=== PATIENT | male | born 1985 | race Caucasian/White ===

== ENCOUNTER 2021-08-02 11:45 | Inpatient (IN) | payer OTHER, SELFPAY ==
--- NOTE | 2021-08-02 | ECG_ITS ---
Test Reason : MED CLEARANCE Blood Pressure : / mmHG Vent. Rate : 070 BPM Atrial Rate : 070 BPM P-R Int : 134 ms QRS Dur : 088 ms QT Int : 354 ms P-R-T Axes : 029 067 040 degrees QTc Int : 382 ms Normal sinus rhythm with sinus arrhythmia Normal ECG No previous ECGs available Referred By: Beth Molina Electronically Signed By:CASPER SALAS MD
[2021-08-02 11:50] VITALS: BP 134/80; BP 144/94; PULSE 101; PULSE 80; RESP 20; TEMP 37.7; O2SAT 95; O2SAT 97; BMI 22.7
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
[2021-08-02 12:38] LABS: COVID-19 Test Negative (Negative); IDNOW Serial# 16C4AD1C
[2021-08-02 13:09] LABS: MANUAL DIFF FLAG NO
[2021-08-02 13:11] LABS: Basophils Absolute Auto 0.1 X10*3/uL (0.0-0.2); Basophils Percent Auto 0.9 % (0-2); Eosinophils Absolute Auto 0.2 X10*3/uL (0.0-0.4); Eosinophils Percent Auto 1.9 % (0-4); Hemoglobin 15.8 g/dl (14.0-18.0); Imm Gran Abs Auto 0.05 X10*3/uL (0.00-0.03); Imm Gran Pct Auto 0.6 % (0.0-0.4); Lymphocytes Absolute Auto 1.1 X10*3/uL (1.2-4.9); Lymphocytes Percent Auto 12.1 % (20-40); Mean Corpuscular HGB Conc 34.3 g/dl (31.0-36.0); Mean Corpuscular Hemoglobin 29.7 pg (27.0-33.0); Mean Corpuscular Volume 86.5 fL (80.0-98.0); Mean Platelet Volume 9.1 fL (9.4-12.4); Monocytes Absolute Auto 0.6 X10*3/uL (0.1-1.2); Monocytes Percent Auto 6.9 % (2-11); Neutrophils Percent Auto 77.6 % (45-73); Platelet Count 215 X10*3/uL (160-400); Red Blood Count 5.32 X10*6/uL (4.60-5.80); Red Cell Distribution Width 12.2 % (11.0-16.0)
[2021-08-02 13:16] VITALS: PULSE 89; TEMP 37.1
[2021-08-02 13:26] LABS: Ethanol < 10 mg/dL
[2021-08-02 13:32] LABS: Influenza A Negative (Negative); Influenza B2 Negative (Negative)
[2021-08-02 13:48] LABS: Amphetamine Screen Urine Not Detected (Not Detect); Barbiturates, Urine Not Detected (Not Detect); Benzodiazepines Screen Urine Not Detected (Not Detect); Cannabinoid Screen Urine Not Detected (Not Detect); Cocaine Screen Urine Not Detected (Not Detect); Fentanyl, urine Not Detected (Not Detect); Opiate Screen Urine Not Detected (Not Detect); Phencyclidine Screen Urine Not Detected (Not Detect)
[2021-08-02 14:29] LABS: Alanine Aminotransferase 29 U/L (0-40); Albumin Level 4.9 g/dL (3.5-5.0); Alkaline Phosphatase 64 U/L (39-117); Anion Gap 13 (12-20); Aspartate Amino Transferase 19 U/L (5-37); Bilirubin Direct 0.3 mg/dL (0.0-0.5); Bilirubin Total 0.7 mg/dL (0.0-1.0); Blood Urea Nitrogen 12 mg/dL (9-16); Calcium 10.6 mg/dL (8.4-10.2); Carbon Dioxide 26 mmol/L (22-29); Chloride 104 mmol/L (96-108); Creatinine Clr Calc Pharmacy 80.7; Estimated Glomerular Filt Rate > 60; Glucose Random 99 mg/dL (60-115); Potassium 4.4 mmol/L (3.3-5.1); Sodium 139 mmol/L (135-145); Total Protein 8.1 g/dL (6.5-8.0)
[2021-08-02] MEDS: QUEtiapine Fumarate 100 MG TABLET PO (17:06)
--- NOTE | 2021-08-02 17:48 | PHA.MEDREC ---
MED REC COMPLETE, SOME TIMES WERE CHANGED BASED ON PATIENT PREFERENCE FOR WHEN HE TAKES THEM. HE HAD STRONG OPINIONS ON WHAT DOSES HE TAKES AT WHAT TIME Pharmacy Consult ? Medication Reconciliation Pharmacy has completed the medication reconciliation.
[2021-08-02 20:05] VITALS: BP 117/64; PULSE 120; RESP 20; TEMP 36.4; O2SAT 95
[2021-08-02] MEDS: QUEtiapine Fumarate 300 MG TABLET PO (20:43)
[2021-08-02] MEDS: DULoxetine HCl 30 MG CAPSULE.DR PO (20:43)
[2021-08-02] MEDS: Melatonin 3 MG TABLET PO (20:43)
[2021-08-02] MEDS: OXcarbazepine 300 MG TABLET 600 MG PO (20:43)
[2021-08-02 21:07] VITALS: PULSE 86; RESP 20
[2021-08-02 22:23] VITALS: BP 119/68; PULSE 89; RESP 16; TEMP 36.4; O2SAT 96; BMI 24.9
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
[2021-08-03 06:00] VITALS: BP 121/74; PULSE 94; RESP 18; TEMP 36.6; O2SAT 97
[2021-08-03] MEDS: QUEtiapine Fumarate 100 MG TABLET PO ×3 (09:10→17:05)
[2021-08-03] MEDS: buPROPion HCl XL 150 MG TAB.ER.24H PO (09:10)
[2021-08-03] MEDS: DULoxetine HCl 60 MG CAPSULE.DR PO (09:10)
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
[2021-08-03 17:28] VITALS: BP 112/54; PULSE 81; RESP 20; TEMP 36.6; O2SAT 97
[2021-08-03] MEDS: QUEtiapine Fumarate 300 MG TABLET PO (20:20)
[2021-08-03] MEDS: Melatonin 3 MG TABLET PO (20:20)
[2021-08-03] MEDS: DULoxetine HCl 30 MG CAPSULE.DR PO (20:20)
[2021-08-03] MEDS: OXcarbazepine 300 MG TABLET 600 MG PO (20:21)
[2021-08-04 06:00] VITALS: BP 126/78; PULSE 90; RESP 18; TEMP 36.6; O2SAT 97
[2021-08-04] MEDS: QUEtiapine Fumarate 100 MG TABLET PO ×3 (09:30→16:40)
[2021-08-04] MEDS: DULoxetine HCl 60 MG CAPSULE.DR PO (09:30)
--- NOTE | 2021-08-04 09:33 | HO.PSYCHPN ---
Subjective Subjective Date of Service: 08/04/21 Reason For Visit: SI, s/p overdose Subjective Notes: 3 Day Healthcare Proxy: No Guardianship: No Medical Problems Affecting Mental Status: No Interim History: Patient was seen and discussed in rounds today. Records and plans were reviewed. He has been engaged but continues to feel depressed. He is more interactive and less isolative. Eating and sleeping adequately. He denies any side effects. He continues to have some suicidal ideations but no plans or intent and states to be safe on the unit. No changes were made today Medication Compliance: Yes Side effects from medications: No Review of Systems Review of Systems Depression/SI Yes all other systems are reviewed and are negative Mental Status Exam Mental Status Exam Narrative: He is alert, oriented and pleasant. Normal speech. Good eye contact. Affect is appropriate and varied. No signs of psychosis. He denies any active suicidal or homicidal ideations. Cognitively is intact. Judgment is intact Diagnostics Vital Signs (24Hr): Vital Signs - 24 hr 08/03/21 17:28 08/04/21 06:00 Temperature 98 F 97.8 F Pulse Rate 81 90 Respiratory Rate 20 18 Blood Pressure 112/54 L 126/78 Pulse Oximetry 97 97 BMI result Body Mass Index 24.9 Labs Results: 08/02/21 13:03 08/02/21 13:03 Labs: Laboratory Results - last 48 hr 08/02/21 08/02/21 08/02/21 12:02 13:03 13:03 WBC 9.0 RBC 5.32 Hgb 15.8 Hct 46.0 MCV 86.5 MCH 29.7 MCHC 34.3 RDW 12.2 Plt Count 215 MPV 9.1 L Immature Gran % (Auto) 0.6 H Neut % (Auto) 77.6 H Lymph % (Auto) 12.1 L Rice % (Auto) 6.9 Eos % (Auto) 1.9 Baso % (Auto) 0.9 Lymph # (Auto) 1.1 L Rice # (Auto) 0.6 Eos # (Auto) 0.2 Baso # (Auto) 0.1 Abs Immat Gran (auto) 0.05 H Absolute Neuts (auto) 7.0 Absolute Nucleated RBC 0.000 Nucleated RBC % (auto) 0.0 Sodium 139 Potassium 4.4 Chloride 104 Carbon Dioxide 26 Anion Gap 13 BUN 12 Creatinine 1.21 Estim Creat Clear Calc 80.7 Estimated GFR > 60 Random Glucose 99 Calcium 10.6 H Total Bilirubin 0.7 Direct Bilirubin 0.3 AST 19 ALT 29 Alkaline Phosphatase 64 Total Protein 8.1 H Albumin 4.9 Urine Opiates Screen Urine Fentanyl Screen Ur Barbiturates Screen Ur Phencyclidine Scrn Ur Amphetamines Screen U Benzodiazepines Scrn Urine Cocaine Screen U Marijuana (THC) Screen Ethyl Alcohol COVID-19 (CASTRO) Negative COVID-19 Clin Com See Note Influenza Type A (POLO) Influenza Type B (POLO) Influenza A & B Note 08/02/21 08/02/21 08/02/21 13:03 13:03 13:25 WBC RBC Hgb Hct MCV MCH MCHC RDW Plt Count MPV Immature Gran % (Auto) Neut % (Auto) Lymph % (Auto) Rice % (Auto) Eos % (Auto) Baso % (Auto) Lymph # (Auto) Rice # (Auto) Eos # (Auto) Baso # (Auto) Abs Immat Gran (auto) Absolute Neuts (auto) Absolute Nucleated RBC Nucleated RBC % (auto) Sodium Potassium Chloride Carbon Dioxide Anion Gap BUN Creatinine Estim Creat Clear Calc Estimated GFR Random Glucose Calcium Total Bilirubin Direct Bilirubin AST ALT Alkaline Phosphatase Total Protein Albumin Urine Opiates Screen Not Detected Urine Fentanyl Screen Not Detected Ur Barbiturates Screen Not Detected Ur Phencyclidine Scrn Not Detected Ur Amphetamines Screen Not Detected U Benzodiazepines Scrn Not Detected Urine Cocaine Screen Not Detected U Marijuana (THC) Screen Not Detected Ethyl Alcohol < 10 COVID-19 (CASTRO) COVID-19 Clin Com Influenza Type A (POLO) Negative Influenza Type B (POLO) Negative Influenza A & B Note See Note Medications Medications Current Medications Acetaminophen (Acetaminophen 325 Mg Tablet) 650 mg PO Q6H PRN PRN Reason: Headache/Pain Mild Scale (1-3) Al Hydroxide/Mg Hydroxide (Magnesium Hydrox/Alum Hydrox 30 Ml Oral.Susp) 30 ml PO Q6H PRN PRN Reason: Heartburn/Nausea Bupropion HCl (Bupropion Hcl Xl 150 Mg Tab.Er.24h) 150 mg PO DAILY FEL[facility] Last Admin: 08/03/21 09:10 Dose: 150 mg Documented by: Clonazepam (Clonazepam 0.5 Mg Tablet) 0.5 mg PO DAILY PRN PRN Reason: anxiety Clonidine HCl (Clonidine Hcl 0.1 Mg Tablet) 0.1 mg PO BID PRN; Protocol PRN Reason: Anxiety Duloxetine HCl (Duloxetine Hcl 30 Mg Capsule.Dr) 30 mg PO BEDTIME [facility] Last Admin: 08/03/21 20:20 Dose: 30 mg Documented by: Duloxetine HCl (Duloxetine Hcl 60 Mg Capsule.Dr) 60 mg PO DAILY [facility] Last Admin: 08/03/21 09:10 Dose: 60 mg Documented by: Hydroxyzine HCl (Hydroxyzine Hcl 50 Mg Tablet) 50 mg PO TID PRN PRN Reason: anxiety Hydroxyzine HCl (Hydroxyzine Hcl 25 Mg Tablet) 25 mg PO BEDTIME PRN PRN Reason: Anxiety Magnesium Hydroxide (Milk Of Magnesia 30 Ml Oral.Susp) 30 ml PO DAILY PRN PRN Reason: Constipation Melatonin (Melatonin 3 Mg Tablet) 3 mg PO BEDTIME [facility] Last Admin: 08/03/21 20:20 Dose: 3 mg Documented by: Nicotine (Nicotine 7 Mg Patch.Td24) 7 mg TRANSDERMA Q24H [facility] Last Admin: 08/03/21 21:26 Dose: Not Given Documented by: Ondansetron HCl (Ondansetron Odt 4 Mg Tab.Rapdis) 4 mg TRANSLINGU Q8H PRN PRN Reason: nausea Oxcarbazepine (Oxcarbazepine 300 Mg Tablet) 600 mg PO BEDTIME [facility] Last Admin: 08/03/21 20:21 Dose: 600 mg Documented by: Quetiapine Fumarate (Quetiapine Fumarate 100 Mg Tablet) 100 mg PO TID@0800,1200,1700 [facility] Last Admin: 08/03/21 17:05 Dose: 100 mg Documented by: Quetiapine Fumarate (Quetiapine Fumarate 300 Mg Tablet) 300 mg PO BEDTIME [facility] Last Admin: 08/03/21 20:20 Dose: 300 mg Documented by: Trazodone HCl (Trazodone Hcl 50 Mg Tablet) 50 mg PO BEDTIME PRN PRN Reason: Insomnia Allergies Allergies Allergy/AdvReac Type Severity Reaction Status Date / Time benztropine [From Cogentin] Allergy Rash Verified 08/02/21 11:57 ibuprofen [From Motrin] Allergy Rash Verified 08/02/21 11:57 Assessment & Plan Assessment & Plan (1) Suicidal ideation: Status: Acute Code(s): R45.851 - Suicidal ideations (2) Substance abuse: Status: Acute Code(s): F19.10 - Other psychoactive substance abuse, uncomplicated Plan Current medications were continued with no changes. He was informed that even though the Klonopin was put as an order he may not be discharged on it 08/04/2021: Continue current regimen and plans I spent minutes with the patient and/or on the patient floor today, greater than?50% of which was spent counseling/coordinating care. Reason for contiued inpatient stay Substantial Risk for: harm to self
[2021-08-04] MEDS: Acetaminophen 325 MG TABLET 650 MG PO ×2 (09:34→15:45)
[2021-08-04] MEDS: buPROPion HCl XL 150 MG TAB.ER.24H PO (09:35)
[2021-08-04] MEDS: Nicotine 7 MG PATCH.TD24 TRANSDERMA (09:35)
[2021-08-04] MEDS: hydrOXYzine HCL 50 MG TABLET PO (15:44)
[2021-08-04] MEDS: Nicotine Polacrilex 2 MG GUM BUCCAL ×2 (16:40→19:08)
[2021-08-04] MEDS: Milk of Magnesia 30 ML ORAL.SUSP PO (16:42)
[2021-08-04 18:00] VITALS: BP 111/76; PULSE 107; RESP 16; TEMP 36.3; O2SAT 98
[2021-08-04] MEDS: QUEtiapine Fumarate 300 MG TABLET PO (22:09)
[2021-08-04] MEDS: DULoxetine HCl 30 MG CAPSULE.DR PO (22:10)
[2021-08-04] MEDS: OXcarbazepine 300 MG TABLET 600 MG PO (22:10)
[2021-08-04] MEDS: Melatonin 3 MG TABLET PO (22:10)
[2021-08-05 06:00] VITALS: BP 139/74; PULSE 99; TEMP 36.7; O2SAT 98
[2021-08-05] MEDS: buPROPion HCl XL 150 MG TAB.ER.24H PO (08:51)
[2021-08-05] MEDS: DULoxetine HCl 60 MG CAPSULE.DR PO (08:51)
[2021-08-05] MEDS: QUEtiapine Fumarate 100 MG TABLET PO ×3 (08:51→17:02)
[2021-08-05] MEDS: Nicotine 7 MG PATCH.TD24 TRANSDERMA (09:24)
[2021-08-05] MEDS: Acetaminophen 325 MG TABLET 650 MG PO ×2 (09:24→14:48)
[2021-08-05] MEDS: Nicotine Polacrilex 2 MG GUM BUCCAL ×6 (09:24→21:11)
[2021-08-05] MEDS: Magnesium Hydrox/Alum Hydrox 30 ML ORAL.SUSP PO ×2 (14:48→19:36)
--- NOTE | 2021-08-05 16:14 | P.PNPSI_ITS ---
Subjective Subjective Date of Service: 08/05/21 Reason For Visit: SI, s/p overdose Interim History: Patient reports that his mood is a little better though he still depressed and anxious, when mostly anxious. He also says that suicidality remains though he is trying to push it off. Patient shared that for the past nearly 2 years he has remained sober however For about the past 3 months, due to serious psychosocial stressors which include Dissolution of his marriage, losing his car a becoming homeless, He has struggled with depression and relapse. Patient says that At his most recent admission at [facility], he was restarted on his medications and started feeling better which extended into respite. However soon as he discharged from respite he quickly relapsed, got depressed, guilty and suicidal. Patient asks if his Wellbutrin can be increased, hoping this will help his mood and stability. He says he is not sure how to maintain sobriety and stability since it has been such a krishna few months. However he wants to be sober and wants to get back to his job. [employer] Discussed psychiatric history in detail and patient denies any history of manic type episodes or behaviors. He says this was also discussed with his outpatient therapist who said he seems more likely to have borderline personality disorder. Denies trauma hx. 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 There is no evidence of perceptual disturbance. Patients insight and judgment are impaired Diagnostics Vital Signs (24Hr): Vital Signs - 24 hr 08/04/21 18:00 08/05/21 06:00 Temperature 97.3 F 98.0 F Pulse Rate 107 H 99 Respiratory Rate 16 Blood Pressure 111/76 139/74 Pulse Oximetry 98 98 BMI result Body Mass Index 24.9 Labs Results: 08/02/21 13:03 08/02/21 13:03 Medications Medications Current Medications Acetaminophen (Acetaminophen 325 Mg Tablet) 650 mg PO Q6H PRN PRN Reason: Headache/Pain Mild Scale (1-3) Last Admin: 08/05/21 14:48 Dose: 650 mg Documented by: Al Hydroxide/Mg Hydroxide (Magnesium Hydrox/Alum Hydrox 30 Ml Oral.Susp) 30 ml PO Q6H PRN PRN Reason: Heartburn/Nausea Last Admin: 08/05/21 14:48 Dose: 30 ml Documented by: Bupropion HCl (Bupropion Hcl Xl 300 Mg Tab.Er.24h) 300 mg PO DAILY FELISHA Clonazepam (Clonazepam 0.5 Mg Tablet) 0.5 mg PO DAILY PRN PRN Reason: anxiety Clonidine HCl (Clonidine Hcl 0.1 Mg Tablet) 0.1 mg PO BID PRN; Protocol PRN Reason: Anxiety Duloxetine HCl (Duloxetine Hcl 30 Mg Capsule.Dr) 30 mg PO BEDTIME [facility] Last Admin: 08/04/21 22:10 Dose: 30 mg Documented by: Duloxetine HCl (Duloxetine Hcl 60 Mg Capsule.Dr) 60 mg PO DAILY [facility] Last Admin: 08/05/21 08:51 Dose: 60 mg Documented by: Hydroxyzine HCl (Hydroxyzine Hcl 50 Mg Tablet) 50 mg PO TID PRN PRN Reason: anxiety Last Admin: 08/04/21 15:44 Dose: 50 mg Documented by: Hydroxyzine HCl (Hydroxyzine Hcl 25 Mg Tablet) 25 mg PO BEDTIME PRN PRN Reason: Anxiety Magnesium Hydroxide (Milk Of Magnesia 30 Ml Oral.Susp) 30 ml PO DAILY PRN PRN Reason: Constipation Last Admin: 08/04/21 16:42 Dose: 30 ml Documented by: Melatonin (Melatonin 3 Mg Tablet) 3 mg PO BEDTIME [facility] Last Admin: 08/04/21 22:10 Dose: 3 mg Documented by: Nicotine (Nicotine 7 Mg Patch.Td24) 7 mg TRANSDERMA Q24H [facility] Last Admin: 08/05/21 09:24 Dose: 7 mg Documented by: Nicotine Polacrilex (Nicotine Polacrilex 2 Mg Gum) 2 mg BUCCAL Q2H PRN PRN Reason: Nicotine Cravings Last Admin: 08/05/21 14:48 Dose: 2 mg Documented by: Ondansetron HCl (Ondansetron Odt 4 Mg Tab.Rapdis) 4 mg TRANSLINGU Q8H PRN PRN Reason: nausea Oxcarbazepine (Oxcarbazepine 300 Mg Tablet) 600 mg PO BEDTIME [facility] Last Admin: 08/04/21 22:10 Dose: 600 mg Documented by: Quetiapine Fumarate (Quetiapine Fumarate 100 Mg Tablet) 100 mg PO TID@0800,1200,1700 [facility] Last Admin: 08/05/21 11:30 Dose: 100 mg Documented by: Quetiapine Fumarate (Quetiapine Fumarate 300 Mg Tablet) 300 mg PO BEDTIME [facility] Last Admin: 08/04/21 22:09 Dose: 300 mg Documented by: Trazodone HCl (Trazodone Hcl 50 Mg Tablet) 50 mg PO BEDTIME PRN PRN Reason: Insomnia Allergies Allergies Allergy/AdvReac Type Severity Reaction Status Date / Time benztropine [From Cogentin] Allergy Rash Verified 08/02/21 11:57 ibuprofen [From Motrin] Allergy Rash Verified 08/02/21 11:57 Assessment & Plan Assessment & Plan (1) Suicidal ideation: Status: Acute Code(s): R45.851 - Suicidal ideations (2) Substance abuse: Status: Acute Code(s): F19.10 - Other psychoactive substance abuse, uncomplicated Plan Patient is 35-year-old male with history of mood lability, substance abuse, depression, several suicide attempts who presents following overdose on Seroquel in the face of discharging from [facility] and psychosocial stresses from dissolution of marriage, homelessness and losing his car. This is 3rd psychiatric hospitalization in about 1.5 months. Patient restarted on his medications 08/05 Remains depressed and anxious with passive SI that he worries will turn into active. Requests that agrees to increase of Wellbutrin to help treat depression/anxiety PLAN: CV q15 INCREASE Wellbutrin XL to 300 mg daily Clonazepam (Clonazepam 0.5 Mg Tablet) 0.5 mg PO DAILY PRN anxiety Clonidine HCl 0.1 mg PO BID PRN;Anxiety Duloxetine HCl 30 mg PO BEDTIME [facility]EL[facility] Duloxetine HCl 60 mg PO DAILY [facility] Hydroxyzine HCl (Hydroxyzine Hcl 50 Mg Tablet) 50 mg PO TID PRN anxiety Melatonin (Melatonin 3 Mg Tablet) 3 mg PO BEDTIME FEL[facility] [id number] mg PO BEDTIME [facility] Quetiapine Fumarate 100 mg PO TID@0800,1200,1700 [facility] Quetiapine Fumarate 300 mg PO BEDTIME [facility] Trazodone HCl 50 mg PO BEDTIME PRN I spent minutes with the patient and/or on the patient floor today, greater than?50% of which was spent counseling/coordinating care. Patient educated on: diagnosis, medication risk/benefits, substance abuse and therapeutic strategies Informed Consent: understands Reason for contiued inpatient stay Substantial Risk for: rapid decompensation
[2021-08-05 18:00] VITALS: BP 137/69; PULSE 109; RESP 18; TEMP 37.2
[2021-08-05] MEDS: clonazePAM 0.5 MG TABLET PO (20:23)
[2021-08-05] MEDS: OXcarbazepine 300 MG TABLET 600 MG PO (22:11)
[2021-08-05] MEDS: DULoxetine HCl 30 MG CAPSULE.DR PO (22:11)
[2021-08-05] MEDS: Melatonin 3 MG TABLET PO (22:11)
[2021-08-05] MEDS: QUEtiapine Fumarate 300 MG TABLET PO (22:12)
[2021-08-06 06:00] VITALS: BP 134/72; PULSE 102; TEMP 36.8; O2SAT 97
[2021-08-06] MEDS: QUEtiapine Fumarate 100 MG TABLET PO ×3 (08:40→16:26)
[2021-08-06] MEDS: buPROPion HCl XL 300 MG TAB.ER.24H PO (08:40)
[2021-08-06] MEDS: DULoxetine HCl 60 MG CAPSULE.DR PO (08:40)
[2021-08-06] MEDS: Nicotine 7 MG PATCH.TD24 TRANSDERMA (08:51)
[2021-08-06] MEDS: Nicotine Polacrilex 2 MG GUM BUCCAL ×4 (10:53→18:46)
[2021-08-06] MEDS: Acetaminophen 325 MG TABLET 650 MG PO ×2 (10:54→21:15)
--- NOTE | 2021-08-06 15:35 | HO.PSYCHPN ---
Subjective Subjective Date of Service: 08/06/21 Reason For Visit: SI, s/p overdose Interim History: Patient reports that he is doing not too bad. No suicidal thinking. Discussed patient's struggles with substance abuse and how when sober he did not think he needed extra-support to remain so. Patient acknowledges that to remain sober he will do best to engage in outpatient treatment such as NA or getting a literacy coach, which he wants. Patient feels that medications are probably on target and that he does not need medication changes at this time. He was unaware other clonidine was available as a p.r.n. which he says has helped in the past for anxiety. Discussed some of patient's borderline traits and he is open to working on work sheets while on the unit. 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 There is no evidence of perceptual disturbance.? Patients insight and judgment are intact. Diagnostics Vital Signs (24Hr): Vital Signs - 24 hr 08/05/21 18:00 08/06/21 06:00 Temperature 99.0 F 98.2 F Pulse Rate 109 H 102 H Respiratory Rate 18 Blood Pressure 137/69 134/72 Pulse Oximetry 97 BMI result Body Mass Index 24.9 Labs Results: 08/02/21 13:03 08/02/21 13:03 Medications Medications Current Medications Acetaminophen (Acetaminophen 325 Mg Tablet) 650 mg PO Q6H PRN PRN Reason: Headache/Pain Mild Scale (1-3) Last Admin: 08/06/21 10:54 Dose: 650 mg Documented by: Al Hydroxide/Mg Hydroxide (Magnesium Hydrox/Alum Hydrox 30 Ml Oral.Susp) 30 ml PO Q6H PRN PRN Reason: Heartburn/Nausea Last Admin: 08/05/21 19:36 Dose: 30 ml Documented by: Bupropion HCl (Bupropion Hcl Xl 300 Mg Tab.Er.24h) 300 mg PO DAILY [facility] Last Admin: 08/06/21 08:40 Dose: 300 mg Documented by: Clonazepam (Clonazepam 0.5 Mg Tablet) 0.5 mg PO DAILY PRN PRN Reason: anxiety Last Admin: 08/05/21 20:23 Dose: 0.5 mg Documented by: Clonidine HCl (Clonidine Hcl 0.1 Mg Tablet) 0.1 mg PO Q4H PRN; Protocol PRN Reason: Anxiety Duloxetine HCl (Duloxetine Hcl 30 Mg Capsule.Dr) 30 mg PO BEDTIME [facility] Last Admin: 08/05/21 22:11 Dose: 30 mg Documented by: Duloxetine HCl (Duloxetine Hcl 60 Mg Capsule.Dr) 60 mg PO DAILY [facility] Last Admin: 08/06/21 08:40 Dose: 60 mg Documented by: Hydroxyzine HCl (Hydroxyzine Hcl 50 Mg Tablet) 50 mg PO TID PRN PRN Reason: anxiety Last Admin: 08/04/21 15:44 Dose: 50 mg Documented by: Magnesium Hydroxide (Milk Of Magnesia 30 Ml Oral.Susp) 30 ml PO DAILY PRN PRN Reason: Constipation Last Admin: 08/04/21 16:42 Dose: 30 ml Documented by: Melatonin (Melatonin 3 Mg Tablet) 3 mg PO BEDTIME [facility] Last Admin: 08/05/21 22:11 Dose: 3 mg Documented by: Nicotine (Nicotine 7 Mg Patch.Td24) 7 mg TRANSDERMA Q24H [facility] Last Admin: 08/06/21 08:51 Dose: 7 mg Documented by: Nicotine Polacrilex (Nicotine Polacrilex 2 Mg Gum) 2 mg BUCCAL Q2H PRN PRN Reason: Nicotine Cravings Last Admin: 08/06/21 14:26 Dose: 2 mg Documented by: Ondansetron HCl (Ondansetron Odt 4 Mg Tab.Rapdis) 4 mg TRANSLINGU Q8H PRN PRN Reason: nausea Oxcarbazepine (Oxcarbazepine 300 Mg Tablet) 600 mg PO BEDTIME [facility] Last Admin: 08/05/21 22:11 Dose: 600 mg Documented by: Quetiapine Fumarate (Quetiapine Fumarate 100 Mg Tablet) 100 mg PO TID@0800,1200,1700 [facility] Last Admin: 08/06/21 12:01 Dose: 100 mg Documented by: Quetiapine Fumarate (Quetiapine Fumarate 300 Mg Tablet) 300 mg PO BEDTIME [facility] Last Admin: 08/05/21 22:12 Dose: 300 mg Documented by: Trazodone HCl (Trazodone Hcl 50 Mg Tablet) 50 mg PO BEDTIME PRN PRN Reason: Insomnia Allergies Allergies Allergy/AdvReac Type Severity Reaction Status Date / Time benztropine [From Cogentin] Allergy Rash Verified 08/02/21 11:57 ibuprofen [From Motrin] Allergy Rash Verified 08/02/21 11:57 Assessment & Plan Assessment & Plan (1) Suicidal ideation: Status: Acute Code(s): R45.851 - Suicidal ideations (2) Substance abuse: Status: Acute Code(s): F19.10 - Other psychoactive substance abuse, uncomplicated Plan Patient is 35-year-old male with history of mood lability, substance abuse, depression, several suicide attempts who presents following overdose on Seroquel in the face of discharging from [facility] and psychosocial stresses from dissolution of marriage, homelessness and losing his car. This is 3rd psychiatric hospitalization in about 1.5 months. Patient restarted on his medications 08/05 Remains depressed and anxious with passive SI that he worries will turn into active. Requests that agrees to increase of Wellbutrin to help treat depression/anxiety 08/06 patient reports mood is better and SI resolved. Feels that medication regimen is working and denies any side effects from increased dose of Wellbutrin. Will avail himself of clonidine as a p.r.n.. Discussed aftercare patient would like to pursue substance abuse treatment in the form of NA or AA literacy coach. PLAN: CV q15 INCREASEd Wellbutrin XL to 300 mg daily Clonazepam (Clonazepam 0.5 Mg Tablet) 0.5 mg PO DAILY PRN anxiety Clonidine HCl 0.1 mg PO BID PRN;Anxiety Duloxetine HCl 30 mg PO BEDTIME [facility] Duloxetine HCl 60 mg PO DAILY [facility]EL[facility] Hydroxyzine HCl (Hydroxyzine Hcl 50 Mg Tablet) 50 mg PO TID PRN anxiety Melatonin (Melatonin 3 Mg Tablet) 3 mg PO BEDTIME FELISHA [id number] mg PO BEDTIME [facility] Quetiapine Fumarate 100 mg PO TID@0800,1200,1700 [facility] Quetiapine Fumarate 300 mg PO BEDTIME [facility] Trazodone HCl 50 mg PO BEDTIME PRN I spent minutes with the patient and/or on the patient floor today, greater than?50% of which was spent counseling/coordinating care. Patient educated on: diagnosis, medication risk/benefits, substance abuse and therapeutic strategies Informed Consent: understands Reason for contiued inpatient stay Substantial Risk for: med/psych decompensation
[2021-08-06] MEDS: cloNIDine HCL 0.1 MG TABLET PO ×2 (16:25→21:15)
[2021-08-06 17:00] VITALS: BP 141/89; PULSE 105; RESP 20; TEMP 36.8; O2SAT 97
[2021-08-06] MEDS: clonazePAM 0.5 MG TABLET PO (19:12)
[2021-08-06] MEDS: DULoxetine HCl 30 MG CAPSULE.DR PO (21:13)
[2021-08-06] MEDS: Melatonin 3 MG TABLET PO (21:14)
[2021-08-06] MEDS: OXcarbazepine 300 MG TABLET 600 MG PO (21:14)
[2021-08-06] MEDS: QUEtiapine Fumarate 300 MG TABLET PO (21:14)
[2021-08-07 06:00] VITALS: BP 136/74; PULSE 100; RESP 18; TEMP 36.7; O2SAT 97
[2021-08-07] MEDS: Acetaminophen 325 MG TABLET 650 MG PO ×2 (08:13→19:25)
[2021-08-07] MEDS: buPROPion HCl XL 300 MG TAB.ER.24H PO (08:14)
[2021-08-07] MEDS: DULoxetine HCl 60 MG CAPSULE.DR PO (08:14)
[2021-08-07] MEDS: QUEtiapine Fumarate 100 MG TABLET PO ×3 (08:14→16:41)
[2021-08-07] MEDS: Nicotine 7 MG PATCH.TD24 TRANSDERMA (08:20)
--- NOTE | 2021-08-07 09:42 | HO.PSYCHPN ---
Subjective Subjective Date of Service: 08/07/21 Reason For Visit: SI, s/p overdose Interim History: depression a little better and thinks it's due to increased Wellbutrin which he's tolerating well; still has intermittent SI but says less so. Pt finds Clonidine helpful as a prn. He met with track and field coach which increases patients hope to stay sober. Discussed discharge. Pt says he's eager to return to work; he has some anxiety about living situation since he'll probably be going to a longterm, but he reports feeling more stable and is optimistic about remaining so. 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 There is no evidence of perceptual disturbance.? Patients insight and judgment are intact. Diagnostics Vital Signs (24Hr): Vital Signs - 24 hr 08/06/21 17:00 08/07/21 06:00 Temperature 98.3 F 98.1 F Pulse Rate 105 H 100 Respiratory Rate 20 18 Blood Pressure 141/89 H 136/74 Pulse Oximetry 97 97 BMI result Body Mass Index 24.9 Labs Results: 08/02/21 13:03 08/02/21 13:03 Medications Medications Current Medications Acetaminophen (Acetaminophen 325 Mg Tablet) 650 mg PO Q6H PRN PRN Reason: Headache/Pain Mild Scale (1-3) Last Admin: 08/07/21 08:13 Dose: 650 mg Documented by: Al Hydroxide/Mg Hydroxide (Magnesium Hydrox/Alum Hydrox 30 Ml Oral.Susp) 30 ml PO Q6H PRN PRN Reason: Heartburn/Nausea Last Admin: 08/05/21 19:36 Dose: 30 ml Documented by: Bupropion HCl (Bupropion Hcl Xl 300 Mg Tab.Er.24h) 300 mg PO DAILY [facility] Last Admin: 08/07/21 08:14 Dose: 300 mg Documented by: Clonazepam (Clonazepam 0.5 Mg Tablet) 0.5 mg PO DAILY PRN PRN Reason: anxiety Last Admin: 08/06/21 19:12 Dose: 0.5 mg Documented by: Clonidine HCl (Clonidine Hcl 0.1 Mg Tablet) 0.1 mg PO Q4H PRN; Protocol PRN Reason: Anxiety Last Admin: 08/06/21 21:15 Dose: 0.1 mg Documented by: Duloxetine HCl (Duloxetine Hcl 30 Mg Capsule.Dr) 30 mg PO BEDTIME [facility] Last Admin: 08/06/21 21:13 Dose: 30 mg Documented by: Duloxetine HCl (Duloxetine Hcl 60 Mg Capsule.Dr) 60 mg PO DAILY [facility] Last Admin: 08/07/21 08:14 Dose: 60 mg Documented by: Hydroxyzine HCl (Hydroxyzine Hcl 50 Mg Tablet) 50 mg PO TID PRN PRN Reason: anxiety Last Admin: 08/04/21 15:44 Dose: 50 mg Documented by: Magnesium Hydroxide (Milk Of Magnesia 30 Ml Oral.Susp) 30 ml PO DAILY PRN PRN Reason: Constipation Last Admin: 08/04/21 16:42 Dose: 30 ml Documented by: Melatonin (Melatonin 3 Mg Tablet) 3 mg PO BEDTIME [facility] Last Admin: 08/06/21 21:14 Dose: 3 mg Documented by: Nicotine (Nicotine 7 Mg Patch.Td24) 7 mg TRANSDERMA Q24H [facility] Last Admin: 08/07/21 08:20 Dose: 7 mg Documented by: Nicotine Polacrilex (Nicotine Polacrilex 2 Mg Gum) 2 mg BUCCAL Q2H PRN PRN Reason: Nicotine Cravings Last Admin: 08/06/21 18:46 Dose: 2 mg Documented by: Ondansetron HCl (Ondansetron Odt 4 Mg Tab.Rapdis) 4 mg TRANSLINGU Q8H PRN PRN Reason: nausea Oxcarbazepine (Oxcarbazepine 300 Mg Tablet) 600 mg PO BEDTIME [facility] Last Admin: 08/06/21 21:14 Dose: 600 mg Documented by: Quetiapine Fumarate (Quetiapine Fumarate 100 Mg Tablet) 100 mg PO TID@0800,1200,1700 [facility] Last Admin: 08/07/21 08:14 Dose: 100 mg Documented by: Quetiapine Fumarate (Quetiapine Fumarate 300 Mg Tablet) 300 mg PO BEDTIME [facility] Last Admin: 08/06/21 21:14 Dose: 300 mg Documented by: Trazodone HCl (Trazodone Hcl 50 Mg Tablet) 50 mg PO BEDTIME PRN PRN Reason: Insomnia Allergies Allergies Allergy/AdvReac Type Severity Reaction Status Date / Time benztropine [From Cogentin] Allergy Rash Verified 08/02/21 11:57 ibuprofen [From Motrin] Allergy Rash Verified 08/02/21 11:57 Assessment & Plan Assessment & Plan (1) Suicidal ideation: Status: Acute Code(s): R45.851 - Suicidal ideations (2) Substance abuse: Status: Acute Code(s): F19.10 - Other psychoactive substance abuse, uncomplicated (3) MDD (major depressive disorder), recurrent episode, severe: Status: Acute Code(s): F33.2 - Major depressive disorder, recurrent severe without psychotic features Plan Patient is 35-year-old male with history of mood lability, substance abuse, depression, several suicide attempts who presents following overdose on Seroquel in the face of discharging from [facility] and psychosocial stresses from dissolution of marriage, homelessness and losing his car. This is 3rd psychiatric hospitalization in about 1.5 months. Patient restarted on his medications 08/05 Remains depressed and anxious with passive SI that he worries will turn into active. Requests that agrees to increase of Wellbutrin to help treat depression/anxiety 08/06 patient reports mood is better and SI resolved. Feels that medication regimen is working and denies any side effects from increased dose of Wellbutrin. Will avail himself of clonidine as a p.r.n.. Discussed aftercare patient would like to pursue substance abuse treatment in the form of NA or AA disaster recovery specialist. 08/07 less depression, intermittent SI but less and just fleeting thoughts; anxious about discharge but he's looking forward to going back to work and feels he can be stable PLAN: CV q15 continue Wellbutrin XL to 300 mg daily Clonazepam (Clonazepam 0.5 Mg Tablet) 0.5 mg PO DAILY PRN anxiety Clonidine HCl 0.1 mg PO BID PRN;Anxiety Duloxetine HCl 30 mg PO BEDTIME [facility] Duloxetine HCl 60 mg PO DAILY [facility] Hydroxyzine HCl (Hydroxyzine Hcl 50 Mg Tablet) 50 mg PO TID PRN anxiety Melatonin (Melatonin 3 Mg Tablet) 3 mg PO BEDTIME [facility] [id number] mg PO BEDTIME [facility] Quetiapine Fumarate 100 mg PO TID@0800,1200,1700 [facility] Quetiapine Fumarate 300 mg PO BEDTIME [facility] Trazodone HCl 50 mg PO BEDTIME PRN I spent minutes with the patient and/or on the patient floor today, greater than?50% of which was spent counseling/coordinating care. Patient educated on: diagnosis, medication risk/benefits and substance abuse Informed Consent: understands Reason for contiued inpatient stay Substantial Risk for: stable for discharge
--- NOTE | 2021-08-07 11:03 | MHC.RECOVSUP ---
? Reason for consult:Recovery Support o Current location: [address] o Identified substance use concern: [facility] - Support ? Intervention: o Community resources provided o Harm reduction discussion ? Plan: o Patient to follow up with [facility] after discharge ? Additional information:Patient is homeless, Patient seeking detox from [facility]. 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
[2021-08-07] MEDS: Nicotine Polacrilex 2 MG GUM BUCCAL ×3 (16:41→20:38)
[2021-08-07 17:18] VITALS: BP 127/76; PULSE 104; RESP 18; TEMP 36.8; O2SAT 96
[2021-08-07] MEDS: cloNIDine HCL 0.1 MG TABLET PO ×2 (18:48→22:39)
[2021-08-07] MEDS: DULoxetine HCl 30 MG CAPSULE.DR PO (20:35)
[2021-08-07] MEDS: OXcarbazepine 300 MG TABLET 600 MG PO (20:37)
[2021-08-07] MEDS: clonazePAM 0.5 MG TABLET PO (20:39)
[2021-08-07] MEDS: Melatonin 3 MG TABLET PO (22:37)
[2021-08-07] MEDS: QUEtiapine Fumarate 300 MG TABLET PO (22:37)
[2021-08-08 07:00] VITALS: BMI 24.6
[2021-08-08] MEDS: DULoxetine HCl 60 MG CAPSULE.DR PO (08:46)
[2021-08-08] MEDS: QUEtiapine Fumarate 100 MG TABLET PO ×3 (08:46→17:20)
[2021-08-08] MEDS: buPROPion HCl XL 300 MG TAB.ER.24H PO (08:46)
[2021-08-08] MEDS: Nicotine 7 MG PATCH.TD24 TRANSDERMA (08:50)
[2021-08-08] MEDS: Acetaminophen 325 MG TABLET 650 MG PO ×2 (08:50→17:26)
--- NOTE | 2021-08-08 12:12 | HO.PSYCHPN ---
Subjective Subjective Date of Service: 08/08/21 Reason For Visit: SI, s/p overdose Interim History: says he's doing better; no SI currently; meds working well; will stay another few days to see if can get into [facility]. Says DBT worksheets helpful. 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 There is no evidence of perceptual disturbance.? Patients insight and judgment are intact. Diagnostics Vital Signs (24Hr): Vital Signs - 24 hr 08/08/21 13:03 08/08/21 17:30 08/09/21 06:30 Temperature 98 F 98.8 F 97.9 F Pulse Rate 88 83 68 Respiratory Rate 16 18 Blood Pressure 129/78 127/70 124/67 Pulse Oximetry 99 99 BMI result Body Mass Index 24.6 Labs Results: 08/02/21 13:03 08/02/21 13:03 Medications Medications Current Medications Acetaminophen (Acetaminophen 325 Mg Tablet) 650 mg PO Q6H PRN PRN Reason: Headache/Pain Mild Scale (1-3) Last Admin: 08/09/21 09:21 Dose: 650 mg Documented by: Al Hydroxide/Mg Hydroxide (Magnesium Hydrox/Alum Hydrox 30 Ml Oral.Susp) 30 ml PO Q6H PRN PRN Reason: Heartburn/Nausea Last Admin: 08/05/21 19:36 Dose: 30 ml Documented by: Bupropion HCl (Bupropion Hcl Xl 300 Mg Tab.Er.24h) 300 mg PO DAILY [facility] Last Admin: 08/09/21 08:45 Dose: 300 mg Documented by: Clonazepam (Clonazepam 0.5 Mg Tablet) 0.5 mg PO DAILY PRN PRN Reason: anxiety Last Admin: 08/08/21 21:51 Dose: 0.5 mg Documented by: Clonidine HCl (Clonidine Hcl 0.1 Mg Tablet) 0.1 mg PO Q4H PRN; Protocol PRN Reason: Anxiety Last Admin: 08/08/21 20:35 Dose: 0.1 mg Documented by: Duloxetine HCl (Duloxetine Hcl 30 Mg Capsule.Dr) 30 mg PO BEDTIME [facility] Last Admin: 08/08/21 20:34 Dose: 30 mg Documented by: Duloxetine HCl (Duloxetine Hcl 60 Mg Capsule.Dr) 60 mg PO DAILY [facility] Last Admin: 08/09/21 08:45 Dose: 60 mg Documented by: Hydroxyzine HCl (Hydroxyzine Hcl 50 Mg Tablet) 50 mg PO TID PRN PRN Reason: anxiety Last Admin: 08/04/21 15:44 Dose: 50 mg Documented by: Magnesium Hydroxide (Milk Of Magnesia 30 Ml Oral.Susp) 30 ml PO DAILY PRN PRN Reason: Constipation Last Admin: 08/04/21 16:42 Dose: 30 ml Documented by: Melatonin (Melatonin 3 Mg Tablet) 3 mg PO BEDTIME [facility] Last Admin: 08/08/21 22:27 Dose: 3 mg Documented by: Nicotine (Nicotine 7 Mg Patch.Td24) 7 mg TRANSDERMA Q24H [facility] Last Admin: 08/08/21 08:50 Dose: 7 mg Documented by: Nicotine Polacrilex (Nicotine Polacrilex 2 Mg Gum) 2 mg BUCCAL Q2H PRN PRN Reason: Nicotine Cravings Last Admin: 08/08/21 19:33 Dose: 2 mg Documented by: Ondansetron HCl (Ondansetron Odt 4 Mg Tab.Rapdis) 4 mg TRANSLINGU Q8H PRN PRN Reason: nausea Oxcarbazepine (Oxcarbazepine 300 Mg Tablet) 600 mg PO BEDTIME [facility] Last Admin: 08/08/21 20:36 Dose: 600 mg Documented by: Quetiapine Fumarate (Quetiapine Fumarate 100 Mg Tablet) 100 mg PO TID@0800,1200,1700 [facility] Last Admin: 08/09/21 08:45 Dose: 100 mg Documented by: Quetiapine Fumarate (Quetiapine Fumarate 300 Mg Tablet) 300 mg PO BEDTIME [facility] Last Admin: 08/08/21 22:27 Dose: 300 mg Documented by: Trazodone HCl (Trazodone Hcl 50 Mg Tablet) 50 mg PO BEDTIME PRN PRN Reason: Insomnia Allergies Allergies Allergy/AdvReac Type Severity Reaction Status Date / Time benztropine [From Cogentin] Allergy Rash Verified 08/02/21 11:57 ibuprofen [From Motrin] Allergy Rash Verified 08/02/21 11:57 Assessment & Plan Assessment & Plan (1) Suicidal ideation: Status: Acute Code(s): R45.851 - Suicidal ideations (2) Substance abuse: Status: Acute Code(s): F19.10 - Other psychoactive substance abuse, uncomplicated (3) MDD (major depressive disorder), recurrent episode, severe: Status: Acute Code(s): F33.2 - Major depressive disorder, recurrent severe without psychotic features Plan Patient is 35-year-old male with history of mood lability, substance abuse, depression, several suicide attempts who presents following overdose on Seroquel in the face of discharging from [facility] and psychosocial stresses from dissolution of marriage, homelessness and losing his car. This is 3rd psychiatric hospitalization in about 1.5 months. Patient restarted on his medications 08/05 Remains depressed and anxious with passive SI that he worries will turn into active. Requests that agrees to increase of Wellbutrin to help treat depression/anxiety 08/06 patient reports mood is better and SI resolved. Feels that medication regimen is working and denies any side effects from increased dose of Wellbutrin. Will avail himself of clonidine as a p.r.n.. 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 08/07 less depression, intermittent SI but less and just fleeting thoughts; anxious about discharge but he's looking forward to going back to work and feels he can be stable 08/08 continue tx plan; stabilizing well PLAN: CV q15 continue Wellbutrin XL to 300 mg daily Clonazepam (Clonazepam 0.5 Mg Tablet) 0.5 mg PO DAILY PRN anxiety Clonidine HCl 0.1 mg PO BID PRN;Anxiety Duloxetine HCl 30 mg PO BEDTIME [facility] Duloxetine HCl 60 mg PO DAILY [facility] Hydroxyzine HCl (Hydroxyzine Hcl 50 Mg Tablet) 50 mg PO TID PRN anxiety Melatonin (Melatonin 3 Mg Tablet) 3 mg PO BEDTIME [facility] [id number] mg PO BEDTIME [facility] Quetiapine Fumarate 100 mg PO TID@0800,1200,1700 [facility] Quetiapine Fumarate 300 mg PO BEDTIME [facility] Trazodone HCl 50 mg PO BEDTIME PRN I spent minutes with the patient and/or on the patient floor today, greater than?50% of which was spent counseling/coordinating care. Patient educated on: medication risk/benefits and therapeutic strategies Informed Consent: understands Reason for contiued inpatient stay Substantial Risk for: stable for discharge
[2021-08-08 13:03] VITALS: BP 129/78; PULSE 88; RESP 16; TEMP 36.6; O2SAT 99
[2021-08-08] MEDS: Nicotine Polacrilex 2 MG GUM BUCCAL ×2 (14:26→19:33)
[2021-08-08 17:30] VITALS: BP 127/70; PULSE 83; TEMP 37.1
[2021-08-08] MEDS: DULoxetine HCl 30 MG CAPSULE.DR PO (20:34)
[2021-08-08] MEDS: cloNIDine HCL 0.1 MG TABLET PO (20:35)
[2021-08-08] MEDS: OXcarbazepine 300 MG TABLET 600 MG PO (20:36)
[2021-08-08] MEDS: clonazePAM 0.5 MG TABLET PO (21:51)
[2021-08-08] MEDS: QUEtiapine Fumarate 300 MG TABLET PO (22:27)
[2021-08-08] MEDS: Melatonin 3 MG TABLET PO (22:27)
[2021-08-09 06:30] VITALS: BP 124/67; PULSE 68; RESP 18; TEMP 36.6; O2SAT 99
[2021-08-09] MEDS: buPROPion HCl XL 300 MG TAB.ER.24H PO (08:45)
[2021-08-09] MEDS: QUEtiapine Fumarate 100 MG TABLET PO ×3 (08:45→17:23)
[2021-08-09] MEDS: DULoxetine HCl 60 MG CAPSULE.DR PO (08:45)
[2021-08-09] MEDS: Acetaminophen 325 MG TABLET 650 MG PO ×3 (09:21→22:53)
--- NOTE | 2021-08-09 10:16 | P.PNPSI_ITS ---
Subjective Subjective Date of Service: 08/12/21 Reason For Visit: SI, s/p overdose Diagnostics Vital Signs (24Hr): Vital Signs - 24 hr 08/08/21 13:03 08/08/21 17:30 08/09/21 06:30 Temperature 98 F 98.8 F 97.9 F Pulse Rate 88 83 68 Respiratory Rate 16 18 Blood Pressure 129/78 127/70 124/67 Pulse Oximetry 99 99 BMI result Body Mass Index 24.6 Labs Results: 08/02/21 13:03 08/02/21 13:03 Medications Medications Current Medications Acetaminophen (Acetaminophen 325 Mg Tablet) 650 mg PO Q6H PRN PRN Reason: Headache/Pain Mild Scale (1-3) Last Admin: 08/09/21 09:21 Dose: 650 mg Documented by: Al Hydroxide/Mg Hydroxide (Magnesium Hydrox/Alum Hydrox 30 Ml Oral.Susp) 30 ml PO Q6H PRN PRN Reason: Heartburn/Nausea Last Admin: 08/05/21 19:36 Dose: 30 ml Documented by: Bupropion HCl (Bupropion Hcl Xl 300 Mg Tab.Er.24h) 300 mg PO DAILY [facility] Last Admin: 08/09/21 08:45 Dose: 300 mg Documented by: Clonazepam (Clonazepam 0.5 Mg Tablet) 0.5 mg PO DAILY PRN PRN Reason: anxiety Last Admin: 08/08/21 21:51 Dose: 0.5 mg Documented by: Clonidine HCl (Clonidine Hcl 0.1 Mg Tablet) 0.1 mg PO Q4H PRN; Protocol PRN Reason: Anxiety Last Admin: 08/08/21 20:35 Dose: 0.1 mg Documented by: Duloxetine HCl (Duloxetine Hcl 30 Mg Capsule.Dr) 30 mg PO BEDTIME [facility] Last Admin: 08/08/21 20:34 Dose: 30 mg Documented by: Duloxetine HCl (Duloxetine Hcl 60 Mg Capsule.Dr) 60 mg PO DAILY [facility] Last Admin: 08/09/21 08:45 Dose: 60 mg Documented by: Hydroxyzine HCl (Hydroxyzine Hcl 50 Mg Tablet) 50 mg PO TID PRN PRN Reason: anxiety Last Admin: 08/04/21 15:44 Dose: 50 mg Documented by: Magnesium Hydroxide (Milk Of Magnesia 30 Ml Oral.Susp) 30 ml PO DAILY PRN PRN Reason: Constipation Last Admin: 08/04/21 16:42 Dose: 30 ml Documented by: Melatonin (Melatonin 3 Mg Tablet) 3 mg PO BEDTIME [facility] Last Admin: 08/08/21 22:27 Dose: 3 mg Documented by: Nicotine (Nicotine 7 Mg Patch.Td24) 7 mg TRANSDERMA Q24H [facility] Last Admin: 08/08/21 08:50 Dose: 7 mg Documented by: Nicotine Polacrilex (Nicotine Polacrilex 2 Mg Gum) 2 mg BUCCAL Q2H PRN PRN Reason: Nicotine Cravings Last Admin: 08/08/21 19:33 Dose: 2 mg Documented by: Ondansetron HCl (Ondansetron Odt 4 Mg Tab.Rapdis) 4 mg TRANSLINGU Q8H PRN PRN Reason: nausea Oxcarbazepine (Oxcarbazepine 300 Mg Tablet) 600 mg PO BEDTIME [facility] Last Admin: 08/08/21 20:36 Dose: 600 mg Documented by: Quetiapine Fumarate (Quetiapine Fumarate 100 Mg Tablet) 100 mg PO T ID@0800,1200,1700 [facility] Last Admin: 08/09/21 08:45 Dose: 100 mg Documented by: Quetiapine Fumarate (Quetiapine Fumarate 300 Mg Tablet) 300 mg PO BEDTIME [facility] Last Admin: 08/08/21 22:27 Dose: 300 mg Documented by: Trazodone HCl (Trazodone Hcl 50 Mg Tablet) 50 mg PO BEDTIME PRN PRN Reason: Insomnia Allergies Allergies Allergy/AdvReac Type Severity Reaction Status Date / Time benztropine [From Cogentin] Allergy Rash Verified 08/02/21 11:57 ibuprofen [From Motrin] Allergy Rash Verified 08/02/21 11:57 Assessment & Plan Assessment & Plan (1) Suicidal ideation: Status: Acute Code(s): R45.851 - Suicidal ideations (2) Substance abuse: Status: Acute Code(s): F19.10 - Other psychoactive substance abuse, uncomplicated (3) MDD (major depressive disorder), recurrent episode, severe: Status: Acute Code(s): F33.2 - Major depressive disorder, recurrent severe without psychotic features Plan Patient is 35-year-old male with history of mood lability, substance abuse, depression, several suicide attempts who presents following overdose on Seroquel in the face of discharging from [facility] and psychosocial stresses from dissolution of marriage, homelessness and losing his car. This is 3rd psychiatric hospitalization in about 1.5 months. Patient restarted on his medications 08/05 Remains depressed and anxious with passive SI that he worries will turn into active. Requests that agrees to increase of Wellbutrin to help treat depression/anxiety 08/06 patient reports mood is better and SI resolved. Feels that medication regimen is working and denies any side effects from increased dose of Wellbutrin. Will avail himself of clonidine as a p.r.n.. 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 08/07 less depression, intermittent SI but less and just fleeting thoughts; anxious about discharge but he's looking forward to going back to work and feels he can be stable 08/08 continue tx plan; stabilizing well PLAN: CV q15 continue Wellbutrin XL to 300 mg daily Clonazepam (Clonazepam 0.5 Mg Tablet) 0.5 mg PO DAILY PRN anxiety Clonidine HCl 0.1 mg PO BID PRN;Anxiety Duloxetine HCl 30 mg PO BEDTIME [facility] Duloxetine HCl 60 mg PO DAILY [facility] Hydroxyzine HCl (Hydroxyzine Hcl 50 Mg Tablet) 50 mg PO TID PRN anxiety Melatonin (Melatonin 3 Mg Tablet) 3 mg PO BEDTIME [facility] [id number] mg PO BEDTIME [facility] Quetiapine Fumarate 100 mg PO TID@0800,1200,1700 [facility] Quetiapine Fumarate 300 mg PO BEDTIME [facility] Trazodone HCl 50 mg PO BEDTIME PRN I spent minutes with the patient and/or on the patient floor today, greater than?50% of which was spent counseling/coordinating care.
[2021-08-09] MEDS: Nicotine Polacrilex 2 MG GUM BUCCAL ×5 (14:01→22:53)
[2021-08-09 18:00] VITALS: BP 133/82; PULSE 106; RESP 16; TEMP 36.6; O2SAT 97
[2021-08-09] MEDS: cloNIDine HCL 0.1 MG TABLET PO ×2 (18:12→22:51)
[2021-08-09] MEDS: clonazePAM 0.5 MG TABLET PO (20:53)
--- NOTE | 2021-08-09 21:25 | P.PNPSI_ITS ---
Subjective Subjective Date of Service: 08/09/21 Reason For Visit: SI, s/p overdose Subjective Notes: Gardner Warning and Conditional Voluntary Healthcare Proxy: No Guardianship: No Medical Problems Affecting Mental Status: No Interim History: Patient seen and discussed with team. Patient evaluated today and upon interview pt reports he is okay. Anxiety is up there. Worried about getting a new roommate. Trying to get FMLA. Still wants to get into a respite. Says everything seems to be working okay for meds. Feels a little less depressed. Had seen the process coach, wants to follow up on this.? In the milieu, patient is safe and appropriate in behavior, at times intense/ activated. Denies SI/SIB/HI upon inquiry. Denies irritability or assaultive ideation. Says he feels safe. 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 There is no evidence of perceptual disturbance.? Patients insight and judgment are intact. Diagnostics Vital Signs (24Hr): Vital Signs - 24 hr 08/09/21 06:30 Temperature 97.9 F Pulse Rate 68 Respiratory Rate 18 Blood Pressure 124/67 Pulse Oximetry 99 BMI result Body Mass Index 24.6 Labs Results: 08/02/21 13:03 08/02/21 13:03 Medications Medications Current Medications Acetaminophen (Acetaminophen 325 Mg Tablet) 650 mg PO Q6H PRN PRN Reason: Headache/Pain Mild Scale (1-3) Last Admin: 08/09/21 15:53 Dose: 650 mg Documented by: Al Hydroxide/Mg Hydroxide (Magnesium Hydrox/Alum Hydrox 30 Ml Oral.Susp) 30 ml PO Q6H PRN PRN Reason: Heartburn/Nausea Last Admin: 08/05/21 19:36 Dose: 30 ml Documented by: Bupropion HCl (Bupropion Hcl Xl 300 Mg Tab.Er.24h) 300 mg PO DAILY [facility] Last Admin: 08/09/21 08:45 Dose: 300 mg Documented by: Clonazepam (Clonazepam 0.5 Mg Tablet) 0.5 mg PO DAILY PRN PRN Reason: anxiety Last Admin: 08/09/21 20:53 Dose: 0.5 mg Documented by: Clonidine HCl (Clonidine Hcl 0.1 Mg Tablet) 0.1 mg PO Q4H PRN; Protocol PRN Reason: Anxiety Last Admin: 08/09/21 18:12 Dose: 0.1 mg Documented by: Docusate Sodium (Docusate Sodium 100 Mg Capsule) 100 mg PO BID PRN PRN Reason: constipation Duloxetine HCl (Duloxetine Hcl 30 Mg Capsule.Dr) 30 mg PO BEDTIME [facility] Last Admin: 08/08/21 20:34 Dose: 30 mg Documented by: Duloxetine HCl (Duloxetine Hcl 60 Mg Capsule.Dr) 60 mg PO DAILY [facility] Last Admin: 08/09/21 08:45 Dose: 60 mg Documented by: Hydroxyzine HCl (Hydroxyzine Hcl 50 Mg Tablet) 50 mg PO TID PRN PRN Reason: anxiety Last Admin: 08/04/21 15:44 Dose: 50 mg Documented by: Magnesium Hydroxide (Milk Of Magnesia 30 Ml Oral.Susp) 30 ml PO DAILY PRN PRN Reason: Constipation Last Admin: 08/04/21 16:42 Dose: 30 ml Documented by: Melatonin (Melatonin 3 Mg Tablet) 3 mg PO BEDTIME [facility] Last Admin: 08/08/21 22:27 Dose: 3 mg Documented by: Nicotine (Nicotine 7 Mg Patch.Td24) 7 mg TRANSDERMA Q24H [facility] Last Admin: 08/08/21 08:50 Dose: 7 mg Documented by: Nicotine Polacrilex (Nicotine Polacrilex 2 Mg Gum) 2 mg BUCCAL Q2H PRN PRN Reason: Nicotine Cravings Last Admin: 08/09/21 20:21 Dose: 2 mg Documented by: Ondansetron HCl (Ondansetron Odt 4 Mg Tab.Rapdis) 4 mg TRANSLINGU Q8H PRN PRN Reason: nausea Oxcarbazepine (Oxcarbazepine 300 Mg Tablet) 600 mg PO BEDTIME [facility] Last Admin: 08/08/21 20:36 Dose: 600 mg Documented by: Quetiapine Fumarate (Quetiapine Fumarate 100 Mg Tablet) 100 mg PO TID@0800,1200,1700 [facility] Last Admin: 08/09/21 17:23 Dose: 100 mg Documented by: Quetiapine Fumarate (Quetiapine Fumarate 300 Mg Tablet) 300 mg PO BEDTIME [facility] Last Admin: 08/08/21 22:27 Dose: 300 mg Documented by: Trazodone HCl (Trazodone Hcl 50 Mg Tablet) 50 mg PO BEDTIME PRN PRN Reason: Insomnia Allergies Allergies Allergy/AdvReac Type Severity Reaction Status Date / Time benztropine [From Cogentin] Allergy Rash Verified 08/02/21 11:57 ibuprofen [From Motrin] Allergy Rash Verified 08/02/21 11:57 Assessment & Plan Assessment & Plan (1) Suicidal ideation: Status: Acute Code(s): R45.851 - Suicidal ideations (2) Substance abuse: Status: Acute Code(s): F19.10 - Other psychoactive substance abuse, uncomplicated (3) MDD (major depressive disorder), recurrent episode, severe: Status: Acute Code(s): F33.2 - Major depressive disorder, recurrent severe without psychotic features Plan Patient is 35-year-old male with history of mood lability, substance abuse, depression, several suicide attempts who presents following overdose on Seroquel in the face of discharging from [facility] and psychosocial stresses from dissolution of marriage, homelessness and losing his car. This is 3rd psychiatric hospitalization in about 1.5 months. Patient restarted on his medications 08/05 Remains depressed and anxious with passive SI that he worries will turn into active. Requests that agrees to increase of Wellbutrin to help treat depression/anxiety 08/06 patient reports mood is better and SI resolved. Feels that medication regimen is working and denies any side effects from increased dose of Wellbutrin. Will avail himself of clonidine as a p.r.n.. Discussed aftercare patient would like to pursue substance abuse treatment in the form of NA or AA process coach. 08/07 less depression, intermittent SI but less and just fleeting thoughts; anxious about discharge but he's looking forward to going back to work and feels he can be stable 08/08 continue tx plan; stabilizing well 08/09 continue current plan, no changes PLAN: CV q15 continue Wellbutrin XL to 300 mg daily Clonazepam (Clonazepam 0.5 Mg Tablet) 0.5 mg PO DAILY PRN anxiety Clonidine HCl 0.1 mg PO BID PRN;Anxiety Duloxetine HCl 30 mg PO BEDTIME [facility] Duloxetine HCl 60 mg PO DAILY [facility] Hydroxyzine HCl (Hydroxyzine Hcl 50 Mg Tablet) 50 mg PO TID PRN anxiety Melatonin (Melatonin 3 Mg Tablet) 3 mg PO BEDTIME [facility] [id number] mg PO BEDTIME [facility] Quetiapine Fumarate 100 mg PO TID@0800,1200,1700 [facility] Quetiapine Fumarate 300 mg PO BEDTIME [facility] Trazodone HCl 50 mg PO BEDTIME PRN I spent minutes with the patient and/or on the patient floor today, greater than?50% of which was spent counseling/coordinating care. Reason for contiued inpatient stay Substantial Risk for: rapid decompensation and med/psych decompensation
[2021-08-09] MEDS: OXcarbazepine 300 MG TABLET 600 MG PO (22:50)
[2021-08-09] MEDS: QUEtiapine Fumarate 300 MG TABLET PO (22:50)
[2021-08-09] MEDS: DULoxetine HCl 30 MG CAPSULE.DR PO (22:50)
[2021-08-09] MEDS: Melatonin 3 MG TABLET PO (22:51)
[2021-08-10 06:00] VITALS: BP 117/64; PULSE 90; RESP 16; TEMP 36.7
[2021-08-10] MEDS: buPROPion HCl XL 300 MG TAB.ER.24H PO (08:00)
[2021-08-10] MEDS: Acetaminophen 325 MG TABLET 650 MG PO ×2 (08:00→18:31)
[2021-08-10] MEDS: DULoxetine HCl 60 MG CAPSULE.DR PO (08:00)
[2021-08-10] MEDS: QUEtiapine Fumarate 100 MG TABLET PO ×4 (08:00→22:52)
[2021-08-10] MEDS: Nicotine 7 MG PATCH.TD24 TRANSDERMA (08:03)
[2021-08-10] MEDS: Nicotine Polacrilex 2 MG GUM BUCCAL ×4 (09:44→22:53)
[2021-08-10 17:56] VITALS: BP 135/69; PULSE 84; RESP 16; TEMP 36.9; O2SAT 98
[2021-08-10] MEDS: OXcarbazepine 300 MG TABLET 600 MG PO (20:28)
[2021-08-10] MEDS: DULoxetine HCl 30 MG CAPSULE.DR PO (20:29)
[2021-08-10] MEDS: QUEtiapine Fumarate 300 MG TABLET PO (22:52)
[2021-08-10] MEDS: Melatonin 3 MG TABLET PO (22:53)
--- NOTE | 2021-08-11 01:54 | HO.PSYCHPN ---
Subjective Subjective Date of Service: 08/10/21 Reason For Visit: SI, s/p overdose Subjective Notes: Gardner Warning and Conditional Voluntary Healthcare Proxy: No Guardianship: No Medical Problems Affecting Mental Status: No Interim History: Patient seen and discussed with team. Patient evaluated today and upon interview he says this has been the best day so far. Wants one additional seroquel 100 mg as a PRN for anxiety, denies this being too sedating. Still has suicidal thoughts, says depression is a 7/10, anxiety is 5/10 (10 is the worst), but also says this is closer to baseline for her. Able to to identify multiple coping skills including talking to people, distraction, and naps. Still working on getting paperwork for FMLA. Sleep is good. Feeling safe. Denies A/VH. In the milieu, patient is safe and appropriate / intense in behavior. Denies SI/SIB/HI upon inquiry. Denies irritability or assaultive ideation. Says he feels safe. 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 There is no evidence of perceptual disturbance.? Patients insight and judgment are intact. Diagnostics Vital Signs (24Hr): Vital Signs - 24 hr 08/10/21 06:00 08/10/21 17:56 Temperature 98.0 F 98.4 F Pulse Rate 90 84 Respiratory Rate 16 16 Blood Pressure 117/64 135/69 Pulse Oximetry 98 BMI result Body Mass Index 24.6 Labs Results: 08/02/21 13:03 08/02/21 13:03 Medications Medications Current Medications Acetaminophen (Acetaminophen 325 Mg Tablet) 650 mg PO Q6H PRN PRN Reason: Headache/Pain Mild Scale (1-3) Last Admin: 08/10/21 18:31 Dose: 650 mg Documented by: Al Hydroxide/Mg Hydroxide (Magnesium Hydrox/Alum Hydrox 30 Ml Oral.Susp) 30 ml PO Q6H PRN PRN Reason: Heartburn/Nausea Last Admin: 08/05/21 19:36 Dose: 30 ml Documented by: Bupropion HCl (Bupropion Hcl Xl 300 Mg Tab.Er.24h) 300 mg PO DAILY [facility] Last Admin: 08/10/21 08:00 Dose: 300 mg Documented by: Clonazepam (Clonazepam 0.5 Mg Tablet) 0.5 mg PO DAILY PRN PRN Reason: anxiety Last Admin: 08/09/21 20:53 Dose: 0.5 mg Documented by: Clonidine HCl (Clonidine Hcl 0.1 Mg Tablet) 0.1 mg PO Q4H PRN; Protocol PRN Reason: Anxiety Last Admin: 08/09/21 22:51 Dose: 0.1 mg Documented by: Docusate Sodium (Docusate Sodium 100 Mg Capsule) 100 mg PO BID PRN PRN Reason: constipation Duloxetine HCl (Duloxetine Hcl 30 Mg Capsule.Dr) 30 mg PO BEDTIME [facility] Last Admin: 08/10/21 20:29 Dose: 30 mg Documented by: Duloxetine HCl (Duloxetine Hcl 60 Mg Capsule.Dr) 60 mg PO DAILY [facility] Last Admin: 08/10/21 08:00 Dose: 60 mg Documented by: Hydroxyzine HCl (Hydroxyzine Hcl 50 Mg Tablet) 50 mg PO TID PRN PRN Reason: anxiety Last Admin: 08/04/21 15:44 Dose: 50 mg Documented by: Magnesium Hydroxide (Milk Of Magnesia 30 Ml Oral.Susp) 30 ml PO DAILY PRN PRN Reason: Constipation Last Admin: 08/04/21 16:42 Dose: 30 ml Documented by: Melatonin (Melatonin 3 Mg Tablet) 3 mg PO BEDTIME [facility] Last Admin: 08/10/21 22:53 Dose: 3 mg Documented by: Nicotine (Nicotine 7 Mg Patch.Td24) 7 mg TRANSDERMA Q24H [facility] Last Admin: 08/10/21 08:03 Dose: 7 mg Documented by: Nicotine Polacrilex (Nicotine Polacrilex 2 Mg Gum) 2 mg BUCCAL Q2H PRN PRN Reason: Nicotine Cravings Last Admin: 05/21/22 22:53 Dose: 2 mg Documented by: Ondansetron HCl (Ondansetron Odt 4 Mg Tab.Rapdis) 4 mg TRANSLINGU Q8H PRN PRN Reason: nausea Oxcarbazepine (Oxcarbazepine 300 Mg Tablet) 600 mg PO BEDTIME [facility] Last Admin: 08/10/21 20:28 Dose: 600 mg Documented by: Quetiapine Fumarate (Quetiapine Fumarate 100 Mg Tablet) 100 mg PO TID@0800,1200,1700 [facility] Last Admin: 08/10/21 18:28 Dose: 100 mg Documented by: Quetiapine Fumarate (Quetiapine Fumarate 300 Mg Tablet) 300 mg PO BEDTIME [facility] Last Admin: 08/10/21 22:52 Dose: 300 mg Documented by: Quetiapine Fumarate (Quetiapine Fumarate 100 Mg Tablet) 100 mg PO DAILY PRN PRN Reason: anxiety Last Admin: 08/10/21 22:52 Dose: 100 mg Documented by: Trazodone HCl (Trazodone Hcl 50 Mg Tablet) 50 mg PO BEDTIME PRN PRN Reason: Insomnia Allergies Allergies Allergy/AdvReac Type Severity Reaction Status Date / Time benztropine [From Cogentin] Allergy Rash Verified 08/02/21 11:57 ibuprofen [From Motrin] Allergy Rash Verified 08/02/21 11:57 Assessment & Plan Assessment & Plan (1) Suicidal ideation: Status: Acute Code(s): R45.851 - Suicidal ideations (2) Substance abuse: Status: Acute Code(s): F19.10 - Other psychoactive substance abuse, uncomplicated (3) MDD (major depressive disorder), recurrent episode, severe: Status: Acute Code(s): F33.2 - Major depressive disorder, recurrent severe without psychotic features Plan Patient is 35-year-old male with history of mood lability, substance abuse, depression, several suicide attempts who presents following overdose on Seroquel in the face of discharging from [facility] and psychosocial stresses from dissolution of marriage, homelessness and losing his car. This is 3rd psychiatric hospitalization in about 1.5 months. Patient restarted on his medications 08/05 Remains depressed and anxious with passive SI that he worries will turn into active. Requests that agrees to increase of Wellbutrin to help treat depression/anxiety 08/06 patient reports mood is better and SI resolved. Feels that medication regimen is working and denies any side effects from increased dose of Wellbutrin. Will avail himself of clonidine as a p.r.n.. Discussed aftercare patient would like to pursue substance abuse treatment in the form of NA or AA recovery specialist. 08/07 less depression, intermittent SI but less and just fleeting thoughts; anxious about discharge but he's looking forward to going back to work and feels he can be stable 08/08 continue tx plan; stabilizing well 08/09 continue current plan, no changes 08/10 no changes per weekend coverage other than adding seroquel 100 mg QD PRN for anxiety PLAN: CV q15 continue Wellbutrin XL to 300 mg daily Clonazepam (Clonazepam 0.5 Mg Tablet) 0.5 mg PO DAILY PRN anxiety Clonidine HCl 0.1 mg PO BID PRN;Anxiety Duloxetine HCl 30 mg PO BEDTIME [facility] Duloxetine HCl 60 mg PO DAILY [facility] Hydroxyzine HCl (Hydroxyzine Hcl 50 Mg Tablet) 50 mg PO TID PRN anxiety Melatonin (Melatonin 3 Mg Tablet) 3 mg PO BEDTIME [facility] [id number] mg PO BEDTIME [facility] Quetiapine Fumarate 100 mg PO TID@0800,1200,1700 [facility] Quetiapine Fumarate 300 mg PO BEDTIME [facility] Trazodone HCl 50 mg PO BEDTIME PRN I spent minutes with the patient and/or on the patient floor today, greater than?50% of which was spent counseling/coordinating care. Patient educated on: medication risk/benefits Reason for contiued inpatient stay Substantial Risk for: inability to function, rapid decompensation and med/psych decompensation
[2021-08-11 06:00] VITALS: BP 129/73; PULSE 112; RESP 18; TEMP 36.9; O2SAT 98
[2021-08-11] MEDS: QUEtiapine Fumarate 100 MG TABLET PO ×4 (08:28→22:23)
[2021-08-11] MEDS: buPROPion HCl XL 300 MG TAB.ER.24H PO (08:28)
[2021-08-11] MEDS: DULoxetine HCl 60 MG CAPSULE.DR PO (08:28)
[2021-08-11] MEDS: Nicotine 7 MG PATCH.TD24 TRANSDERMA (08:28)
[2021-08-11] MEDS: Acetaminophen 325 MG TABLET 650 MG PO ×2 (13:38→20:17)
[2021-08-11] MEDS: Nicotine Polacrilex 2 MG GUM BUCCAL ×3 (13:38→19:26)
[2021-08-11 15:55] VITALS: BP 155/78; PULSE 110; TEMP 36.4; O2SAT 96
[2021-08-11] MEDS: cloNIDine HCL 0.1 MG TABLET PO (16:01)
[2021-08-11] MEDS: clonazePAM 0.5 MG TABLET PO (21:11)
[2021-08-11] MEDS: QUEtiapine Fumarate 300 MG TABLET PO (22:17)
[2021-08-11] MEDS: Melatonin 3 MG TABLET PO (22:17)
[2021-08-11] MEDS: OXcarbazepine 300 MG TABLET 600 MG PO (22:17)
[2021-08-11] MEDS: DULoxetine HCl 30 MG CAPSULE.DR PO (22:18)
--- NOTE | 2021-08-12 07:51 | HO.PSYCHPN ---
Subjective Subjective Date of Service: 08/11/21 Reason For Visit: SI, s/p overdose Subjective Notes: Gardner Warning and Conditional Voluntary Guardianship: No Medical Problems Affecting Mental Status: No Interim History: Patient seen and discussed with team. Patient evaluated today and upon interview pt reports he is anxious, obviously as he is leaving in two days, i hope they find a bed in respite. Depression is down today, unable to say why. Says I really feel like the meds are working. In the milieu, patient is safe and appropriate/ intense and animated in behavior. Denies SI/SIB/HI upon inquiry. Denies irritability or assaultive ideation. Says he feels safe. 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 There is no evidence of perceptual disturbance.? Patients insight and judgment are intact. Diagnostics Vital Signs (24Hr): Vital Signs - 24 hr 08/11/21 15:55 Temperature 97.6 F Pulse Rate 110 H Blood Pressure 155/78 H Pulse Oximetry 96 BMI result Body Mass Index 24.6 Labs Results: 08/02/21 13:03 08/02/21 13:03 Medications Medications Current Medications Acetaminophen (Acetaminophen 325 Mg Tablet) 650 mg PO Q6H PRN PRN Reason: Headache/Pain Mild Scale (1-3) Last Admin: 08/11/21 20:17 Dose: 650 mg Documented by: Al Hydroxide/Mg Hydroxide (Magnesium Hydrox/Alum Hydrox 30 Ml Oral.Susp) 30 ml PO Q6H PRN PRN Reason: Heartburn/Nausea Last Admin: 08/05/21 19:36 Dose: 30 ml Documented by: Bupropion HCl (Bupropion Hcl Xl 300 Mg Tab.Er.24h) 300 mg PO DAILY [facility] Last Admin: 08/11/21 08:28 Dose: 300 mg Documented by: Clonazepam (Clonazepam 0.5 Mg Tablet) 0.5 mg PO DAILY PRN PRN Reason: anxiety Last Admin: 08/11/21 21:11 Dose: 0.5 mg Documented by: Clonidine HCl (Clonidine Hcl 0.1 Mg Tablet) 0.1 mg PO Q4H PRN; Protocol PRN Reason: Anxiety Last Admin: 08/11/21 16:01 Dose: 0.1 mg Documented by: Docusate Sodium (Docusate Sodium 100 Mg Capsule) 100 mg PO BID PRN PRN Reason: constipation Duloxetine HCl (Duloxetine Hcl 30 Mg Capsule.Dr) 30 mg PO BEDTIME [facility] Last Admin: 08/11/21 22:18 Dose: 30 mg Documented by: Duloxetine HCl (Duloxetine Hcl 60 Mg Capsule.Dr) 60 mg PO DAILY [facility] Last Admin: 08/11/21 08:28 Dose: 60 mg Documented by: Hydroxyzine HCl (Hydroxyzine Hcl 50 Mg Tablet) 50 mg PO TID PRN PRN Reason: anxiety Last Admin: 08/04/21 15:44 Dose: 50 mg Documented by: Magnesium Hydroxide (Milk Of Magnesia 30 Ml Oral.Susp) 30 ml PO DAILY PRN PRN Reason: Constipation Last Admin: 08/04/21 16:42 Dose: 30 ml Documented by: Melatonin (Melatonin 3 Mg Tablet) 3 mg PO BEDTIME [facility] Last Admin: 08/11/21 22:17 Dose: 3 mg Documented by: Nicotine (Nicotine 7 Mg Patch.Td24) 7 mg TRANSDERMA Q24H [facility] Last Admin: 08/11/21 08:28 Dose: 7 mg Documented by: Nicotine Polacrilex (Nicotine Polacrilex 2 Mg Gum) 2 mg BUCCAL Q2H PRN PRN Reason: Nicotine Cravings Last Admin: 08/11/21 19:26 Dose: 2 mg Documented by: Ondansetron HCl (Ondansetron Odt 4 Mg Tab.Rapdis) 4 mg TRANSLINGU Q8H PRN PRN Reason: nausea Oxcarbazepine (Oxcarbazepine 300 Mg Tablet) 600 mg PO BEDTIME [facility] Last Admin: 08/11/21 22:17 Dose: 600 mg Documented by: Quetiapine Fumarate (Quetiapine Fumarate 100 Mg Tablet) 100 mg PO TID@0800,1200,1700 [facility] Last Admin: 08/11/21 16:01 Dose: 100 mg Documented by: Quetiapine Fumarate (Quetiapine Fumarate 300 Mg Tablet) 300 mg PO BEDTIME [facility] Last Admin: 08/11/21 22:17 Dose: 300 mg Documented by: Quetiapine Fumarate (Quetiapine Fumarate 100 Mg Tablet) 100 mg PO DAILY PRN PRN Reason: anxiety Last Admin: 08/11/21 22:23 Dose: 100 mg Documented by: Trazodone HCl (Trazodone Hcl 50 Mg Tablet) 50 mg PO BEDTIME PRN PRN Reason: Insomnia Allergies Allergies Allergy/AdvReac Type Severity Reaction Status Date / Time benztropine [From Cogentin] Allergy Rash Verified 08/02/21 11:57 ibuprofen [From Motrin] Allergy Rash Verified 08/02/21 11:57 Assessment & Plan Assessment & Plan (1) Suicidal ideation: Status: Acute Code(s): R45.851 - Suicidal ideations (2) Substance abuse: Status: Acute Code(s): F19.10 - Other psychoactive substance abuse, uncomplicated (3) MDD (major depressive disorder), recurrent episode, severe: Status: Acute Code(s): F33.2 - Major depressive disorder, recurrent severe without psychotic features Plan Patient is 35-year-old male with history of mood lability, substance abuse, depression, several suicide attempts who presents following overdose on Seroquel in the face of discharging from [facility] and psychosocial stresses from dissolution of marriage, homelessness and losing his car. This is 3rd psychiatric hospitalization in about 1.5 months. Patient restarted on his medications 08/05 Remains depressed and anxious with passive SI that he worries will turn into active. Requests that agrees to increase of Wellbutrin to help treat depression/anxiety 08/06 patient reports mood is better and SI resolved. Feels that medication regimen is working and denies any side effects from increased dose of Wellbutrin. Will avail himself of clonidine as a p.r.n.. Discussed aftercare patient would like to pursue substance abuse treatment in the form of NA or AA production recovery operator. 08/07 less depression, intermittent SI but less and just fleeting thoughts; anxious about discharge but he's looking forward to going back to work and feels he can be stable 08/08 continue tx plan; stabilizing well 08/09 continue current plan, no changes 08/10 no changes per weekend coverage other than adding seroquel 100 mg QD PRN for anxiety 08/11 no changes per weekend coverage other than adding seroquel 100 mg QD PRN for anxiety PLAN: CV q15 continue Wellbutrin XL to 300 mg daily Clonazepam (Clonazepam 0.5 Mg Tablet) 0.5 mg PO DAILY PRN anxiety Clonidine HCl 0.1 mg PO BID PRN;Anxiety Duloxetine HCl 30 mg PO BEDTIME [facility] Duloxetine HCl 60 mg PO DAILY [facility] Hydroxyzine HCl (Hydroxyzine Hcl 50 Mg Tablet) 50 mg PO TID PRN anxiety Melatonin (Melatonin 3 Mg Tablet) 3 mg PO BEDTIME [facility] [id number] mg PO BEDTIME [facility] Quetiapine Fumarate 100 mg PO TID@0800,1200,1700 [facility] Quetiapine Fumarate 300 mg PO BEDTIME [facility] Trazodone HCl 50 mg PO BEDTIME PRN I spent minutes with the patient and/or on the patient floor today, greater than?50% of which was spent counseling/coordinating care. Patient educated on: medication risk/benefits Reason for contiued inpatient stay Substantial Risk for: inability to function, rapid decompensation and med/psych decompensation
[2021-08-12] MEDS: DULoxetine HCl 60 MG CAPSULE.DR PO (08:34)
[2021-08-12] MEDS: buPROPion HCl XL 300 MG TAB.ER.24H PO (08:34)
[2021-08-12] MEDS: QUEtiapine Fumarate 100 MG TABLET PO ×4 (08:35→21:53)
[2021-08-12] MEDS: Acetaminophen 325 MG TABLET 650 MG PO (08:38)
[2021-08-12] MEDS: Nicotine Polacrilex 2 MG GUM BUCCAL ×3 (09:57→19:03)
[2021-08-12] MEDS: Nicotine 7 MG PATCH.TD24 TRANSDERMA (09:57)
[2021-08-12 10:20] VITALS: BP 138/78; PULSE 121; TEMP 36.4; O2SAT 97
[2021-08-12] MEDS: cloNIDine HCL 0.1 MG TABLET PO ×2 (10:33→18:37)
--- NOTE | 2021-08-12 15:44 | P.PNPSI_ITS ---
Subjective Subjective Date of Service: 08/12/21 Reason For Visit: SI, s/p overdose Interim History: Patient reports that he is doing overall okay. Depression is better and no SI. He said he had some anxiety today which was increased because he knows he is leaving tomorrow. He is worried about keeping his job, since there are numerous logistical things to deal with such as transportation to and from while staying at a prison. 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 He is hoping this can be rectified before he goes. Otherwise patient feels that the medications are the right doses and are helpful. He is optimistic that he can stay sober and stable and feels ready for discharge. 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 There is no evidence of perceptual disturbance.? Patients insight and judgment are intact. Diagnostics Vital Signs (24Hr): Vital Signs - 24 hr 08/11/21 15:55 08/12/21 10:20 Temperature 97.6 F 97.6 F Pulse Rate 110 H 121 H Blood Pressure 155/78 H 138/78 Pulse Oximetry 96 97 BMI result Body Mass Index 24.6 Labs Results: 08/02/21 13:03 08/02/21 13:03 Medications Medications Current Medications Acetaminophen (Acetaminophen 325 Mg Tablet) 650 mg PO Q6H PRN PRN Reason: Headache/Pain Mild Scale (1-3) Last Admin: 08/12/21 08:38 Dose: 650 mg Documented by: Al Hydroxide/Mg Hydroxide (Magnesium Hydrox/Alum Hydrox 30 Ml Oral.Susp) 30 ml PO Q6H PRN PRN Reason: Heartburn/Nausea Last Admin: 08/05/21 19:36 Dose: 30 ml Documented by: Bupropion HCl (Bupropion Hcl Xl 300 Mg Tab.Er.24h) 300 mg PO DAILY [facility] Last Admin: 08/12/21 08:34 Dose: 300 mg Documented by: Clonazepam (Clonazepam 0.5 Mg Tablet) 0.5 mg PO DAILY PRN PRN Reason: anxiety Last Admin: 08/11/21 21:11 Dose: 0.5 mg Documented by: Clonidine HCl (Clonidine Hcl 0.1 Mg Tablet) 0.1 mg PO Q4H PRN; Protocol PRN Reason: Anxiety Last Admin: 08/12/21 10:33 Dose: 0.1 mg Documented by: Docusate Sodium (Docusate Sodium 100 Mg Capsule) 100 mg PO BID PRN PRN Reason: constipation Duloxetine HCl (Duloxetine Hcl 30 Mg Capsule.Dr) 30 mg PO BEDTIME [facility] Last Admin: 08/11/21 22:18 Dose: 30 mg Documented by: Duloxetine HCl (Duloxetine Hcl 60 Mg Capsule.Dr) 60 mg PO DAILY [facility] Last Admin: 08/12/21 08:34 Dose: 60 mg Documented by: Hydroxyzine HCl (Hydroxyzine Hcl 50 Mg Tablet) 50 mg PO TID PRN PRN Reason: anxiety Last Admin: 08/04/21 15:44 Dose: 50 mg Documented by: Magnesium Hydroxide (Milk Of Magnesia 30 Ml Oral.Susp) 30 ml PO DAILY PRN PRN Reason: Constipation Last Admin: 08/04/21 16:42 Dose: 30 ml Documented by: Melatonin (Melatonin 3 Mg Tablet) 3 mg PO BEDTIME [facility] Last Admin: 08/11/21 22:17 Dose: 3 mg Documented by: Nicotine (Nicotine 7 Mg Patch.Td24) 7 mg TRANSDERMA Q24H [facility] Last Admin: 08/12/21 09:57 Dose: 7 mg Documented by: Nicotine Polacrilex (Nicotine Polacrilex 2 Mg Gum) 2 mg BUCCAL Q2H PRN PRN Reason: Nicotine Cravings Last Admin: 08/12/21 13:38 Dose: 2 mg Documented by: Ondansetron HCl (Ondansetron Odt 4 Mg Tab.Rapdis) 4 mg TRANSLINGU Q8H PRN PRN Reason: nausea Oxcarbazepine (Oxcarbazepine 300 Mg Tablet) 600 mg PO BEDTIME [facility] Last Admin: 08/11/21 22:17 Dose: 600 mg Documented by: Quetiapine Fumarate (Quetiapine Fumarate 100 Mg Tablet) 100 mg PO TID@0800,12 00,1700 [facility] Last Admin: 08/12/21 12:09 Dose: 100 mg Documented by: Quetiapine Fumarate (Quetiapine Fumarate 300 Mg Tablet) 300 mg PO BEDTIME [facility] Last Admin: 08/11/21 22:17 Dose: 300 mg Documented by: Quetiapine Fumarate (Quetiapine Fumarate 100 Mg Tablet) 100 mg PO DAILY PRN PRN Reason: anxiety Last Admin: 08/11/21 22:23 Dose: 100 mg Documented by: Trazodone HCl (Trazodone Hcl 50 Mg Tablet) 50 mg PO BEDTIME PRN PRN Reason: Insomnia Allergies Allergies Allergy/AdvReac Type Severity Reaction Status Date / Time benztropine [From Cogentin] Allergy Rash Verified 08/02/21 11:57 ibuprofen [From Motrin] Allergy Rash Verified 08/02/21 11:57 Assessment & Plan Assessment & Plan (1) Suicidal ideation: Status: Acute Code(s): R45.851 - Suicidal ideations (2) Substance abuse: Status: Acute Code(s): F19.10 - Other psychoactive substance abuse, uncomplicated (3) MDD (major depressive disorder), recurrent episode, severe: Status: Acute Code(s): F33.2 - Major depressive disorder, recurrent severe without psychotic features Plan Patient is 35-year-old male with history of mood lability, substance abuse, depression, several suicide attempts who presents following overdose on Seroquel in the face of discharging from [facility] and psychosocial stresses from dissolution of marriage, homelessness and losing his car.? This is 3rd psychiatric hospitalization in about 1.5 months. Patient restarted on his medications Hospital course: 08/05 Remains depressed and anxious with passive SI that he worries will turn into active.? Requests that agrees to increase of Wellbutrin to help treat depression/anxiety 08/06 patient reports mood is better and SI resolved.? Feels that medication regimen is working and denies any side effects from increased dose of Wellbutrin.? Will avail himself of clonidine as a p.r.n..? 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 08/07 less depression, intermittent SI but less and just fleeting thoughts; anxious about discharge but he's looking forward to going back to work and feels he can be stable 08/08 continue tx plan; stabilizing well 08/09 continue current plan, no changes 08/10 no changes per weekend coverage other than adding seroquel 100 mg QD PRN for anxiety 08/11 no changes per weekend coverage other than adding seroquel 100 mg QD PRN for anxiety 08/12 Remains stable, no SI, depression better; patient is optimistic about remaining stable and sober. He is not in imminent risk of harm to self or others and his plan for discharge tomorrow is appropriate PLAN: CV q15 continue Wellbutrin XL to 300 mg daily Clonazepam (Clonazepam 0.5 Mg Tablet)? 0.5 mg PO DAILY PRN anxiety Clonidine HCl 0.1 mg PO BID PRN;Anxiety Duloxetine HCl 30 mg PO BEDTIME [facility] Duloxetine HCl ? 60 mg PO DAILY [facility] Hydroxyzine HCl (Hydroxyzine Hcl 50 Mg Tablet)? 50 mg PO TID PRN anxiety Melatonin (Melatonin 3 Mg Tablet)? 3 mg PO BEDTIME FELISHA [id number] mg PO BEDTIME FELISHA ? Quetiapine Fumarate? 100 mg PO TID@0800,1200,1700 [facility] Quetiapine Fumarate 300 mg PO BEDTIME [facility] Trazodone HCl? 50 mg PO BEDTIME PRN I spent minutes with the patient and/or on the patient floor today, greater than?50% of which was spent counseling/coordinating care. Patient educated on: substance abuse and therapeutic strategies Informed Consent: understands Reason for contiued inpatient stay Substantial Risk for: stable for discharge
--- NOTE | 2021-08-12 20:10 | MHC.RECOVSUP ---
Reason for consult: Recovery support o Current location: 512-2 o Identified substance use concern: Crack Cocaine <del>-</del> <del>Overdose</del> <del>-</del> <del>Withdrawal</del> <del>-</del> <del>Seeking</del> <del>ATS</del> <del>(detox)</del> - Support ? Intervention: <del>o</del> <del>ATS</del> <del>bed</del> <del>search</del> <del>started/completed/in</del> <del>process</del> <del>o</del> <del>MAT</del> <del>started</del> <del>or</del> <del>to</del> <del>be</del> <del>started</del> <del>o</del> <del>Community</del> <del>resources</del> <del>provided</del> o Harm reduction discussion ? Plan: <del>o</del> <del>Referral</del> <del>to</del> <del>[facility]</del> <del>o</del> <del>Bed</del> <del>search</del> <del>in</del> <del>progress</del> <del>to</del> <del>o</del> <del>Follow</del> <del>up</del> <del>tomorrow</del> <del>o</del> <del>Patient</del> <del>awaiting</del> <del>crisis</del> <del>evaluation</del> <del>o</del> <del>Patient</del> <del>to</del> <del>follow</del> <del>up</del> <del>with</del> <del>[facility]</del> <del>after</del> <del>discharge</del> ? 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 pt shared that he might be released and will go to the livingroom.pt has a hx of substance use and mental health. pt is not on MAT. pt barrier is not having a safe place to live after being d/c. he shared that his job is being held for him until he gets better but also shared that if he loses his job he will end his life. I was able to talk and share that we ([facility]) will be willing to support and help him once he is released. He gave me his phone number which I will give to a [facility] and they will get in contact with him and provide him with support.
[2021-08-12] MEDS: hydrOXYzine HCL 50 MG TABLET PO (20:11)
[2021-08-12] MEDS: clonazePAM 0.5 MG TABLET PO (20:11)
[2021-08-12 20:20] VITALS: BP 141/79; PULSE 115; RESP 19; TEMP 37.5; O2SAT 97
[2021-08-12] MEDS: Melatonin 3 MG TABLET PO (21:20)
[2021-08-12] MEDS: DULoxetine HCl 30 MG CAPSULE.DR PO (21:20)
[2021-08-12] MEDS: OXcarbazepine 300 MG TABLET 600 MG PO (21:20)
[2021-08-12] MEDS: QUEtiapine Fumarate 300 MG TABLET PO (23:02)
--- NOTE | 2021-08-13 00:47 | PC.NURSE ---
At approximately 2315, this junior copywriter responded to staff who was calling for assistance in the hallway. Staff member was what appeared to be holding a pt, and calling for assistance and scissors. This junior copywriter responded to scene with scissors and at that point it was clear that the pt had twisted a pair of hospital pants into a cord like apparatus and was trying to strangle himself. The original staff member was trying to place his hands in between the pt's throat and the cord to prevent asphyxsiation. Scissors were used to cut through the pants and pt was freed from them. Pt was then brought back to his room and evaluated and appeared to be unharmed physically other than reddened area around his neck. Staff went in to talk with pt to discuss why he did this and he stated that he felt he was not ready for discharge and was either going to do it here or outside of here. Pt will continue to be monitored and was placed on 1:1 for his safety.
[2021-08-13] MEDS: QUEtiapine Fumarate 100 MG TABLET PO ×3 (08:57→16:20)
[2021-08-13] MEDS: Nicotine 7 MG PATCH.TD24 TRANSDERMA (08:57)
[2021-08-13] MEDS: buPROPion HCl XL 300 MG TAB.ER.24H PO (08:57)
[2021-08-13] MEDS: DULoxetine HCl 60 MG CAPSULE.DR PO (08:57)
[2021-08-13 09:00] VITALS: BP 146/69; PULSE 133; RESP 20; O2SAT 98
--- NOTE | 2021-08-13 09:08 | P.PNPSI_ITS ---
Subjective Subjective Date of Service: 08/13/21 Reason For Visit: SI, s/p overdose Interim History: Overnight, patient was emotionally dysregulated which carried on throughout the morning during which time he had several instances where he took a pillowcase or pants and wrapped them around his neck pulling them tightly, requiring staff to remove. Patient placed on a 2-1. Director Of Primary Care and social and human services assistant met with patient and had a very thorough and helpful discussion about these events. Patient fully agreed that throughout this whole admission his mood has been improved in overall good enough and that he has not had any SI even up until yesterday afternoon. He said however that as nighttime approached he became more and more anxious about his pending discharge. He said this is exactly what happened at [facility] and [facility], where he was fine until the medina of discharge. Patient s aid that last night he was having trouble sleeping due to anxiety which was triggered by and not having finished his [place] paperwork and wondering how to navigate transportation from the half-way to work. He said he could not seem to stop this anxiety and that had the thought that tomorrow morning it is just going to continue since he will be even close to discharge. Patient said in response, he tied some pants around his neck and then walked out into the hallway hoping someone would see [him] at which time staff removed the pants and placed him on a one-to-one. Today, when social and human services assistant was talking with him, he put the pillowcase around his neck and pulled it tighter but then loosened it when social and human services assistant said it is too hard to talk with him this way and was able to have an appropriate conversation including about discharge. A little later patient explained the put a pillow case on his head but despite the fact that he did not tie it tightly, he was upset that his one-to-one did not have an alarmed response. Patient said that this made him worried that if he was actually going to kill himself, no one would be there to keep him safe so he got up, walked out the room and pulled a little tighter around his neck, and then walked by the nursing desk to make sure he was seen, at which time he pulled it tighter still and staff rushed to remove it. Patient demonstrated insight who as he processed these events with this scientific writer and was able to acknowledge that there was a significant part of them that felt the only way he could express how overwhelming his anxiety was, was to demonstrated by putting something around his neck; he agreed that and stead of going out and telling staff that he was being suffocated by his anxiety he tried to show them this. He also agreed that it would be far more preferable to verbally share with staff his feelings rather than pursue such behaviors. Patient shared that he has been struggling with suicidal ideation and attempts since he was 18 years old. He knows that he has achieved and overcome much and over the years learn to control himself much better; however he says when the anxiety comes and will not relent he he struggles with impulsivity and just wanting the feelings to stop. Patient shares that he strongly wants to pursue life and is excited about returning to his job and hopeful about getting back on his feet; conversely he knows that working through this challenging time will intermittently feel daunting. Director Of Primary Care and patient discussed practicing and strengthening coping skills and learning that despite the onset of anxiety and even the onset of SI, both of which pt acknowledges will inevitably return, it is possible to know that these feelings will pass and learn to tolerate them until they do. Patient himself acknowledged that during this conversation he's witnessed that the anxious feelings did actually pass and he is again more optimistic. Director Of Primary Care, social and human services assistant and patient discussed where to go from now. Patient expressed that he fully understands that he will again struggle with anxiety, SI and have mood lability and that this decades long struggle is not going to resolve by staying on the unit longer, but will be something he needs to work out over time and through therapy, of which patient is engaged. He feels medications are adequate and does not feel the need for adjustments. Patient expressed that he can be safe and come off one-to-one observation, feeling capable to verbally share with staff if he is feeling distressed rather than act out behaviorally. He says he would like to stay another night but understands that his discharge is inevitable. Patient shared other instances where he has acted out through behaviors, his distressed feelings, most recently when he went to Crisis and while at Crisis, went into the bathroom and overdosing on Seroquel. Patient also shared that when he was admitted to [facility], they did not give him the medications he wanted so he decided to purposely act out and break things, pulling stuff off the [place] to see if he could get the staff to change their minds about medication; when he realized this was not working he stopped these behaviors. Patient shared that his outpatient therapist recently talked to him about patient having diagnosis of borderline personality disorder. 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 There is no evidence of perceptual disturbance.? Patients insight and judgment are impaired but at baseline and adequate. Diagnostics Vital Signs (24Hr): Vital Signs - 24 hr 08/12/21 10:20 08/12/21 20:20 Temperature 97.6 F 99.5 F Pulse Rate 121 H 115 H Respiratory Rate 19 Blood Pressure 138/78 141/79 H Pulse Oximetry 97 97 BMI result Body Mass Index 24.6 Labs Results: 08/02/21 13:03 08/02/21 13:03 Medications Medications Current Medications Acetaminophen (Acetaminophen 325 Mg Tablet) 650 mg PO Q6H PRN PRN Reason: Headache/Pain Mild Scale (1-3) Last Admin: 08/12/21 08:38 Dose: 650 mg Documented by: Al Hydroxide/Mg Hydroxide (Magnesium Hydrox/Alum Hydrox 30 Ml Oral.Susp) 30 ml PO Q6H PRN PRN Reason: Heartburn/Nausea Last Admin: 08/05/21 19:36 Dose: 30 ml Documented by: Bupropion HCl (Bupropion Hcl Xl 300 Mg Tab.Er.24h) 300 mg PO DAILY FELISHA Last Admin: 08/13/21 08:57 Dose: 300 mg Documented by: Clonazepam (Clonazepam 0.5 Mg Tablet) 0.5 mg PO DAILY PRN PRN Reason: anxiety Last Admin: 08/12/21 20:11 Dose: 0.5 mg Documented by: Clonidine HCl (Clonidine Hcl 0.1 Mg Tablet) 0.1 mg PO Q4H PRN; Protocol PRN Reason: Anxiety Last Admin: 08/12/21 18:37 Dose: 0.1 mg Documented by: Docusate Sodium (Docusate Sodium 100 Mg Capsule) 100 mg PO BID PRN PRN Reason: constipation Duloxetine HCl (Duloxetine Hcl 30 Mg Capsule.Dr) 30 mg PO BEDTIME [facility] Last Admin: 08/12/21 21:20 Dose: 30 mg Documented by: Duloxetine HCl (Duloxetine Hcl 60 Mg Capsule.Dr) 60 mg PO DAILY [facility] Last Admin: 08/13/21 08:57 Dose: 60 mg Documented by: Hydroxyzine HCl (Hydroxyzine Hcl 50 Mg Tablet) 50 mg PO TID PRN PRN Reason: anxiety Last Admin: 08/12/21 20:11 Dose: 50 mg Documented by: Magnesium Hydroxide (Milk Of Magnesia 30 Ml Oral.Susp) 30 ml PO DAILY PRN PRN Reason: Constipation Last Admin: 08/04/21 16:42 Dose: 30 ml Documented by: Melatonin (Melatonin 3 Mg Tablet) 3 mg PO BEDTIME [facility] Last Admin: 08/12/21 21:20 Dose: 3 mg Documented by: Nicotine (Nicotine 7 Mg Patch.Td24) 7 mg TRANSDERMA Q24H [facility] Last Admin: 08/13/21 08:57 Dose: 7 mg Documented by: Nicotine Polacrilex (Nicotine Polacrilex 2 Mg Gum) 2 mg BUCCAL Q2H PRN PRN Reason: Nicotine Cravings Last Admin: 08/12/21 19:03 Dose: 2 mg Documented by: Ondansetron HCl (Ondansetron Odt 4 Mg Tab.Rapdis) 4 mg TRANSLINGU Q8H PRN PRN Reason: nausea Oxcarbazepine (Oxcarbazepine 300 Mg Tablet) 600 mg PO BEDTIME [facility] Last Admin: 08/12/21 21:20 Dose: 600 mg Documented by: Quetiapine Fumarate (Quetiapine Fumarate 100 Mg Tablet) 100 mg PO TID@0800,1200,1700 [facility] Last Admin: 08/13/21 08:57 Dose: 100 mg Documented by: Quetiapine Fumarate (Quetiapine Fumarate 300 Mg Tablet) 300 mg PO BEDTIME FELISHA Last Admin: 08/12/21 23:02 Dose: 300 mg Documented by: Quetiapine Fumarate (Quetiapine Fumarate 100 Mg Tablet) 100 mg PO DAILY PRN PRN Reason: anxiety Last Admin: 08/12/21 21:53 Dose: 100 mg Documented by: Trazodone HCl (Trazodone Hcl 50 Mg Tablet) 50 mg PO BEDTIME PRN PRN Reason: Insomnia Allergies Allergies Allergy/AdvReac Type Severity Reaction Status Date / Time benztropine [From Cogentin] Allergy Rash Verified 08/02/21 11:57 ibuprofen [From Motrin] Allergy Rash Verified 08/02/21 11:57 Assessment & Plan Assessment & Plan (1) MDD (major depressive disorder), recurrent episode, severe: Status: Chronic Code(s): F33.2 - Major depressive disorder, recurrent severe without psychotic features (2) Suicidal ideation: Status: Chronic Code(s): R45.851 - Suicidal ideations (3) Substance abuse: Status: Chronic Code(s): F19.10 - Other psychoactive substance abuse, uncomplicated (4) Borderline personality disorder: Status: Acute Code(s): F60.3 - Borderline personality disorder Plan Patient is 35-year-old male with history of mood lability, substance abuse, depression, several suicide attempts who presents following overdose on Seroquel in the face of discharging from [facility] and psychosocial stresses from dissolution of marriage, homelessness and losing his car.? This is 3rd psychiatric hospitalization in about 1.5 months. Patient restarted on his medications Forumlation: Patient struggles with a combination of borderline personality disorder, PTSD and depression which is been complicated by relapse with substance abuse PLAN: CV q15 DC on 08/13/21; patient chronically struggles with mood lability, SI and suicidal gestures which will not resolve with further inpatient stay; patient agrees with this assessment and agrees for discharge continue Wellbutrin XL to 300 mg daily Clonazepam (Clonazepam 0.5 Mg Tablet)? 0.5 mg PO DAILY PRN anxiety Clonidine HCl 0.1 mg PO BID PRN;Anxiety Duloxetine HCl 30 mg PO BEDTIME FELIS[facility] Duloxetine HCl ? 60 mg PO DAILY FELISHA Hydroxyzine HCl (Hydroxyzine Hcl 50 Mg Tablet)? 50 mg PO TID PRN anxiety Melatonin (Melatonin 3 Mg Tablet)? 3 mg PO BEDTIME FELISHA [id number] mg PO BEDTIME [facility]IS[facility] Quetiapine Fumarate? 100 mg PO TID@0800,1200,1700 [facility] Quetiapine Fumarate 300 mg PO BEDTIME [facility] Trazodone HCl? 50 mg PO BEDTIME PRN Hospital course: 08/05 Remains depressed and anxious with passive SI that he worries will turn into active.? Requests that agrees to increase of Wellbutrin to help treat depression/anxiety 08/06 patient reports mood is better and SI resolved.? Feels that medication regimen is working and denies any side effects from increased dose of Wellbutrin.? Will avail himself of clonidine as a p.r.n..? Discussed aftercare patient would like to pursue substance abuse treatment in the form of NA or AA recovery room nurse. 08/07 less depression, intermittent SI but less and just fleeting thoughts; anxious about discharge but he's looking forward to going back to work and feels he can be stable 08/08 continue tx plan; stabilizing well 08/09 continue current plan, no changes 08/10 no changes per weekend coverage other than adding seroquel 100 mg QD PRN for anxiety 08/11 no changes per weekend coverage other than adding seroquel 100 mg QD PRN for anxiety 08/12 Remains stable, no SI, depression better; patient is optimistic about remaining stable and sober. He is not in imminent risk of harm to self or others and his plan for discharge tomorrow is appropriate 08/13 On [place] of discharge, patient was emotionally dysregulated which carried on throughout the morning during which time he had several instances where he took a pillowcase or pants and wrapped them around his neck pulling them tightly, requiring staff to remove. Patient placed on a 2-1. Director Of Primary Care and social and human services assistant met with patient and had a very thorough and helpful discussion about these events. Patient fully agreed that throughout this whole admission his mood has been improved in overall good enough and that he has not had any SI even up until yesterday afternoon. He said however that as nighttime approached he became more and more anxious about his pending discharge. He said this is exactly what happened at [facility] and [facility], where he was fine until the medina of discharge. Patient said that last night he was having trouble sleeping due to anxiety which was triggered by and not having finished his [facility] paperwork and wondering how to navigate transportation from the half-way to work. He said he could not seem to stop this anxiety and that had the thought that tomorrow morning it is just going to continue since he will be even close to discharge. Patient said in response, he tied some pants around his neck and then walked out into the hallway hoping someone would see [him] at which time staff removed the pants and placed him on a one-to-one. Today, when social and human services assistant was talking with him, he put the pillowcase around his neck and pulled it tighter but then loosened it when social and human services assistant said it is too hard to talk with him this way and was able to have an appropriate conversation including about discharge. A little later patient explained the put a pillow case on his head but despite the fact that he did not tie it tightly, he was upset that his one-to-one did not have an alarmed response. Patient said that this made him worried that if he was actually going to kill himself, no one would be there to keep him safe so he got up, walked out the room and pulled a little tighter around his neck, and then walked by the nursing desk to make sure he was seen, at which time he pulled it tighter still and staff rushed to remove it. Patient demonstrated insight who as he processed these events with this scientific writer and was able to aclouanno kaitlynn that there was a significant part of them that felt the only way he could express how overwhelming his anxiety was, was to demonstrated by putting something around his neck; he agreed that and stead of going out and telling staff that he was being suffocated by his anxiety he tried to show them this. He also agreed that it would be far more preferable to verbally share with staff his feelings rather than pursue such behaviors. Patient shared that he has been struggling with suicidal ideation and attempts since he was 18 years old. He knows that he has achieved and overcome much and over the years learn to control himself much better; however he says when the anxiety comes and will not relent he he struggles with impulsivity and just wanting the feelings to stop. Patient shares that he strongly wants to pursue life and is excited about returning to his job and hopeful about getting back on his feet; conversely he knows that working through this challenging time will intermittently feel daunting. Director Of Primary Care and patient discussed practicing and strengthening coping skills and learning that despite the onset of anxiety and even the onset of SI, both of which pt acknowledges will inevitably return, it is possible to know that these feelings will pass and learn to tolerate them until they do. Patient himself acknowledged that during this conversation he's witnessed that the anxious feelings did actually pass and he is again more optimistic. Director Of Primary Care, social and human services assistant and patient discussed where to go from now. Patient expressed that he fully understands that he will again struggle with anxiety, SI and have mood lability and that this decades long struggle is not going to resolve by staying on the unit longer, but will be something he needs to work out over time and through therapy, of which patient is engaged. He feels medications are adequate and does not feel the need for adjustments. Patient expressed that he can be safe and come off one-to-one observation, feeling capable to verbally share with staff if he is feeling distressed rather than act out behaviorally. He says he would like to stay another night but understands that his discharge is inevitable. Case discussed with team including nursing motel food service supervisor, charge nurse, social and human services assistant on case and Dr. Contreras. All agree that patient struggles are chronic and that his behaviors are in the context of discharge only, with low to no lethality and high rescue factor and did not necessitate that patient remaining on inpatient unit longer. Director Of Primary Care maintains that these recent behaviors were not actual suicide attempts but rather a gesture that patient utilizes to communicate to others feelings he finds it difficult to otherwise express. It is a pattern of his of which he is also aware. Team agrees that these chronic struggles will not resolve with at longer inpatient stay but require long-term outpatient therapy. As discussed above, given patient's history and chronic struggles, he remains vulnerable to both relapse and decompensation and it is likely that he will again at some point struggle with overwhelming emotions. However this is patient's baseline. And at baseline, while living in the community, Ceasar is a high-risk patient. Sometimes he is able to cope with his emotions and other times he requires additional support, including inpatient admission. Patient has a safety plan and says he will reach out for help immediately if he feels unsafe and will contact Crisis, go to the ED. At this time, it is scientific writer's opinion that patient is appropriate for discharge where he will continue to work on his issues as an outpatient. Patient agrees. Patient shared other instances where he has acted out through behaviors, his distressed feelings, most recently when he went to Crisis and while at Crisis, went into the bathroom and overdosing on Seroquel. Patient also shared that whe n he was admitted to [facility], they did not give him the medications he wanted so he decided to purposely act out and break things, pulling stuff off the [place] to see if he could get the staff to change their minds about medication; when he realized this was not working he stopped these behaviors. Patient shared that his outpatient therapist recently talked to him about patient having diagnosis of borderline personality disorder. Additionally, patient's mother told social and human services assistant that patient has a more recent history of superficial self- harm but only on the day of discharge from psychiatric hospitalizations I spent minutes with the patient and/or on the patient floor today, greater than?50% of which was spent counseling/coordinating care. Patient educated on: diagnosis and therapeutic strategies Informed Consent: understands Reason for contiued inpatient stay Substantial Risk for: stable for discharge
[2021-08-13] MEDS: Acetaminophen 325 MG TABLET 650 MG PO (09:40)
[2021-08-13] MEDS: Nicotine Polacrilex 2 MG GUM BUCCAL ×3 (09:40→16:22)
[2021-08-13] MEDS: cloNIDine HCL 0.1 MG TABLET PO (10:46)
[2021-08-13] MEDS: hydrOXYzine HCL 50 MG TABLET PO (10:46)
--- NOTE | 2021-08-13 12:47 | PC.NURSE ---
Self-harm on the unit. This morning Ceasar was on 1:1 observation after a strangulation attempt on a previous shift. While in the Dining/Activities Room he told his nurse that he was still having suicidal ideation with a plan; Yeah I'm still thinking about it. I could go to my room right now, I can probably out run her (gestured to staff on 1:1) and I've got some tools in my room . Ceasar initially declined to disclose what these self-harm tools were and declined to turn them over to staff. Later in the morning he was noted with a pillowcase over his head and was pulling it with both hands tight around his neck. Ceasar was noted to be breathing while staff, the PC DB, attempted to remove his hands from the pillowcase. He struggled with staff and did not engage verbally while staff was physically attempting to stop the self-harming episode. He was minimally engaged with multiple attempts from staff and not able to engage in treatment nor utilize positive coping skills at the time. The nurse assigned to Ceasar alerted the staff on 1:1, multiple PC's and MHA's of the self-harming safety parameters at the time, before a plan could be devised with the treatment team. Shortly after this incident Ceasar was seen in the hallway with multiple knots in the hospital pants that were tied to a pillow case. His face was and neck was reddened at that time. Staff was able to untie the several knots in the clothing/linens around his neck. Additional staff failed to respond at the time because a staff member in Group Room C erroneously stated, It's just Mark and it was assumed by this selling underwriter that they saw Mark through the window in the door as they were facing that direction. Ceasar continued to decline to participate in treatment nor plan for positive coping skills with suicidal ideation. He stated, It's pointless. I'm gonna do it when I leave so I might as well do it in the hospital . Ceasar made vague statements of hopelessness and helplessness at the time. When his nurse assessed his vital signs Ceasar began strangling himself with the BP tubing on the Dinamap machine. He released it after staff failed to struggle to remove it from his neck. The doctor, social media intern, charge nurse, director, manager of project management, and corporate wellness coordinator were notified of the situation.
[2021-08-13 17:05] VITALS: BP 141/61; PULSE 113; TEMP 37.2
[2021-08-13] MEDS: OXcarbazepine 300 MG TABLET 600 MG PO (21:35)
[2021-08-13] MEDS: clonazePAM 0.5 MG TABLET PO (21:36)
[2021-08-13] MEDS: DULoxetine HCl 30 MG CAPSULE.DR PO (21:36)
[2021-08-13] MEDS: Melatonin 3 MG TABLET PO (22:35)
[2021-08-13] MEDS: QUEtiapine Fumarate 300 MG TABLET PO (22:35)
[2021-08-14 08:00] VITALS: BP 138/74; PULSE 86; RESP 16; TEMP 36; O2SAT 99
[2021-08-14] MEDS: QUEtiapine Fumarate 100 MG TABLET PO ×3 (08:17→12:08)
[2021-08-14] MEDS: Nicotine 7 MG PATCH.TD24 TRANSDERMA (08:17)
[2021-08-14] MEDS: DULoxetine HCl 60 MG CAPSULE.DR PO (08:17)
[2021-08-14] MEDS: buPROPion HCl XL 300 MG TAB.ER.24H PO (08:17)
[2021-08-14] MEDS: Acetaminophen 325 MG TABLET 650 MG PO (08:45)
--- NOTE | 2021-08-14 10:39 | PM.PSYDC ---
DS: Providers Provider Date of Service: 08/14/21 Date of admission: 08/02/21 21:35 Date of discharge: 08/14/21 Primary care physician: Ian Physician Attending physician on admission: Harsha Logan Attending physician on discharge: Harsha Logan DS: Diagnosis Discharge Diagnosis (1) MDD (major depressive disorder), recurrent episode, severe: Status: Chronic (2) Suicidal ideation: Status: Chronic (3) Substance abuse: Status: Chronic (4) Borderline personality disorder: Status: Acute DS: Medications Discharge Medications Home Medications: Previous Rx's Medication Instructions Recorded bupropion HCl 300 mg 24 hr tablet, 300 mg PO DAILY 30 Days #30 tab 08/13/21 extended release clonidine HCl 0.1 mg tablet 0.1 mg PO Q4H PRN 30 Days #90 tab 08/13/21 duloxetine 30 mg capsule,delayed See Rx Instructions .ROUTE 08/13/21 release .COMPLEX 30 Days #90 cap melatonin 3 mg tablet 3 mg PO BEDTIME PRN 30 Days #30 tab 08/13/21 nicotine (polacrilex) 2 mg gum 2 mg BUCCAL Q2H PRN 30 Days #100 ea 08/13/21 nicotine 7 mg/24 hr daily 1 patch TRANSDERMAL DAILY PRN 28 08/13/21 transdermal patch Days #28 ea oxcarbazepine 600 mg tablet 600 mg PO BEDTIME 30 Days #30 tab 08/13/21 quetiapine 100 mg tablet 100 mg PO TID@0800,1200,1700 30 08/13/21 Days #100 tab quetiapine 300 mg tablet 300 mg PO BEDTIME 30 Days #30 tab 08/13/21 Mental Status Exam Mental Status Exam Narrative: Pt is alert and oriented; behavior is cooperative, friendly and calm; patient is not in distress; dressed in hospital gown with unkempt hair but adequate hygiene; mood is described as anxious though affect calm; eye contact appropriate; Speech is normal rate; volume is loud due to 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 There is no evidence of perceptual disturbance.? Patients insight and judgment is fair and adequate. DS: Summary Hospital Course Hospital Course: HPI: Patient is 35-year-old male with history of mood lability, substance abuse, depression, several suicide attempts who presents following overdose on Seroquel in the face of discharging from [facility] and psychosocial stresses from dissolution of marriage, homelessness and losing his car.? This is 3rd psychiatric hospitalization in about 1.5 months. Patient struggles with a combination of borderline personality disorder, PTSD and depression which is been complicated by relapse with substance abuse. His outpt therapist told patient he thinks he has borderline personality disorder, which medical technical writer also found to be likely true Hospital course: On admission, patient was depressed and with passive SI but no intention or plans. Patient was worried that it could become active SI however. He agreed to increase Wellbutrin which was well tolerated and increase to good effect. Patient's mood improved and is SI fully resolved. Patient attended groups and was engaged in 1 1 therapy sessions. He agreed to getting head track coach feeling this will significantly help him and his sobriety. Patient was appropriate with peers and staff and other than 1 or 2 short lived irritated responses, he overall remained in good behavioral and impulse control. Patient was hopeful to get into respite however a bed did not become available and so he agreed to alternative, temporary option of [facility] until either [facility] bed opened or he went to [facility] [place] [facility]. Patient very much enjoys his job, finds it stabilizing and was eager to return with return date of August 25; he was in contact with his boss who is supportive and also eager to have him return, holding his position for him. The day before discharge, he expressed some anxiety about discharge, but remained optimistic about staying safe and sober and shared that he'll continue with his outpatient therapist and prescriber with whom he has a good rapport; he was in an overerall good mood, feeling good about medication regimen, without any SI and hopeful. However, on the night before he was to be discharged, patient's anxiety about discharge increased and became overwhelming. On 08/13 the [place] of discharge, patient became emotionally dysregulated and tied a pair of pants around his neck and walked into the hallway to show nursing staff; this dysregulation continued into the next morning during which time he had several more instances where he took a pillowcase or pants and wrapped them around his neck pulling them tightly, requiring staff to remove.? Patient placed on a 2-1.? Manager Resort and social media job titles met with patient and had a very thorough and helpful discussion about these events.? Patient fully agreed that throughout this whole admission his mood has been improved in overall good enough and that he has not had any SI even up until yesterday afternoon.? He said however that as nighttime approached he became more and more anxious about his pending discharge.? He said this is exactly what happened at [facility] and [facility], where he was fine until the [place] of discharge.? Patient said that last night he was having trouble sleeping due to anxiety which was triggered by and not having finished his [place] paperwork and wondering how to navigate transportation [place] [facility] to work.? He said he could not seem to stop this anxiety and that had the thought that tomorrow morning it is just going to continue since he will be even close to discharge.? Patient said in response, he tied some pants around his neck and then walked out into the hallway hoping someone would see [him] at which time staff removed the pants and placed him on a one-to-one.? Today, when social media job titles was talking with him, he put the pillowcase around his neck and pulled it tighter but then loosened it when social media job titles said it is too hard to talk with him this way and was able to have an appropriate conversation including about discharge.? A little later? patient explained the put a pillow case on his head but despite the fact that he did not tie it tightly, he was upset that his one-to-one did not have an alarmed response.? Patient said that this made him worried that if he was actually going to kill himself, no one would be there to keep him safe so he got up, walked out the room and pulled a little tighter around his neck, and then walked by the nursing desk to make sure he was seen, at which time he pulled it tighter still and staff rushed to remove it.? Patient demonstrated insight who as he processed these events with this medical technical writer and was able to acknowledge that there was a significant part of them that felt the only way he could express how overwhelming his anxiety was, was to demonstrated by putting something around his neck; he agreed that and stead of going out and telling staff that he was being suffocated by his anxiety he tried to show them this.? He also agreed that it would be far more preferable to verbally share with staff his feelings rather than pursue such behaviors.? Patient shared that he has been struggling with suicidal ideation and attempts since he was 18 years old.? He knows that he has achieved and overcome much and over the years learn to control himself much better; however he says when the anxiety comes and will not relent he he struggles with impulsivity and just wanting the feelings to stop.? Patient shares that he strongly wants to pursue life and is excited about returning to his job and hopeful about getting back on his feet; conversely he knows that working through this challenging time will intermittently feel daunting.? Manager Resort and patient discussed practicing and strengthening coping skills and learning that despite the onset of anxiety and even the onset of SI, both of which pt acknowledges will inevitably return, it is possible to know that these feelings will pass and learn to tolerate them until they do.? Patient himself acknowledged that during this conversation he's witnessed that the anxious feelings did actually pass and he is again more optimistic. Manager Resort, social media job titles and patient discussed where to go from now.? Patient expressed that he fully understands that he will again struggle with anxiety, SI and have mood lability and that this decades long struggle is not going to resolve by staying on the unit longer, but will be something he needs to work out over time and through therapy, of which patient is engaged. He feels medications are adequate and does not feel the need for adjustments. Patient expressed that he can be safe and come off one-to-one observation, feeling capable to verbally share with staff if he is feeling distressed rather than act out behaviorally.? He says he would like to stay another night but understands that his discharge is inevitable. Overnight, staff reports that patient had a good night and remained in good behavioral and impulse control On 08/14 Manager Resort and social media job titles met with patient today and he is okay with being discharged.? He denies SI.? He says he is anxious but explains he knows that is just part of it and will have to make it through.? He shared how he did have anxiety last night but found with himself to cope through it.? He says I got a plan and patient is hopeful that he will stay stable.? He said he reflected on conversation yesterday and that he was grateful for the insight.? Patient shares he? sees the pattern himself of how he gets dysregulated when he is about to discharge; also reflecting on his life he agrees he has overcome much.? Patient's perspective is that yesterday's behaviors were a hiccup and that he does not need to let it derail him; he also talked about his propensity towards catastrophizing and and that he? will keep working on it.? Patient reiterates he is eager to start work since he feels this will be very stabilizing for him.? Manager Resort discussed clonazepam.? He says that it is very helpful but it is up to this medical technical writer whether to prescribe it and he understands the risks of this controlled substance.? Manager Resort agreed to give him a 10 day dose with a refill which is enough to get him to his outpatient prescriber with whom he says he has a good report.? Patient expressed much gratitude for help received and that he feels he is definitely grown and achieved something during this admission. Case discussed with team including nursing supervisor intelligence analyst, charge nurse, social media job titles on case and Dr. Contreras.? All agree that patient struggles are chronic and that his behaviors are in the context of discharge only, with low to no lethality and high rescue factor and did not necessitate that patient remaining on inpatient unit longer. Manager Resort maintains that these recent behaviors were not actual suicide attempts but rather a gesture that patient utilizes to communicate to others feelings he finds it difficult to otherwise express. It is a pattern of his of which he is also aware. Team agrees that these chronic struggles will not resolve with at longer inpatient stay but require long-term outpatient therapy.? As discussed above, given patient's history and chronic struggles, he remains vulnerable to both relapse and decompensation and it is likely that he will again at some point struggle with overwhelming emotions.? However this is patient's baseline.? And at baseline, while living in the community, Ceasar is a high-risk patient.? Sometimes he is able to cope with his emotions and other times he requires additional support, including inpatient admission. Patient has a safety plan and says he will reach out for help immediately if he feels unsafe and will contact Crisis, go to the ED. At this time, it is medical technical writer's opinion that patient is appropriate for discharge where he will continue to work on his issues as an outpatient. Patient agrees. Of note, and regarding dx of borderline personality disorder: Patient shared other instances where he has acted out through behaviors, his distressed feelings, most recently when he went to Crisis and while at Crisis, went into the bathroom and overdosing on Seroquel.? Patient also shared that when he was admitted to [facility], they did not give him the medications he wanted so he decided to purposely act out and break things, pulling stuff off the groves to see if he could get the staff to change their minds about medication; when he realized this was not working he stopped these behaviors.? Patient shared that his outpatient therapist recently talked to him about patient having diagnosis of borderline personality disorder.? Additionally, patient's mother told social media job titles that patient has a more recent history of superficial self-harm but only on the day of discharge from psychiatric hospitalizations And impulse control Time spent discussing smoking cessation with patient: 3 to 10 minutes Status at Discharge Functional status at discharge: independent ambulation Overall status at discharge: patient is back to baseline Time Spent with Patient Time attestation: Total time spent providing and/or coordinating discharge services: Time spent: Greater than 30 minutes Discharge Plan Discharge Patient Disposition: Long-Term Discharge Diagnosis: MDD, recurrent, severe in partial remission Referrals: Psychiatric Med Management: Danisha Bolton [Other] - 08/30/21 2:00 pm (This is a Telehealth appointment) [facility] [Other] - 1 Week Discharge Medications: New nicotine (polacrilex) 2 mg Gum 2 mg buccal Q2H PRN (Reason: Nicotine Cravings) 30 Days Qty: 100 0RF bupropion HCl 300 mg Tablet Extended Release 24 Hr 300 mg PO DAILY 30 Days Qty: 30 0RF duloxetine 30 mg Capsule,Delayed Release(Dr/Ec) See Rx Instructions .ROUTE .COMPLEX 30 Days Qty: 90 0RF Rx Instructions: take 1 capsule daily and take 2 capsules at bedtime clonazepam 0.5 mg Tablet 0.5 mg PO DAILY PRN (Reason: anxiety) 10 Days Qty: 10 1RF quetiapine 100 mg Tablet 100 mg PO TID@0800,1200,1700 30 Days Qty: 90 0RF quetiapine [Seroquel] 50 mg tablet 50 mg PO BID PRN (Reason: breakthrough anxiety) 30 Days Qty: 60 0RF Rx Instructions: take 1 to 2 days daily as needed for breakthrough anxiety Continued quetiapine 100 mg Tablet 100 mg PO TID@0800,1200,1700 30 Days Qty: 100 0RF Rx Instructions: may take 1 extra tab daily as needed for breakthrough agitation oxcarbazepine 600 mg Tablet 600 mg PO BEDTIME 30 Days Qty: 30 0RF Changed clonidine HCl 0.1 mg tablet 0.1 mg PO Q4H PRN (Reason: Anxiety) 30 Days Qty: 90 0RF quetiapine 300 mg tablet 300 mg PO BEDTIME 30 Days Qty: 30 0RF melatonin 3 mg tablet 3 mg PO BEDTIME PRN (Reason: sleep) 30 Days Qty: 30 0RF nicotine 7 mg/24 hr Patch 24 Hour 1 patch TRANSDERMAL DAILY PRN (Reason: nicotine cravings) 28 Days Qty: 28 0RF Discontinued clonazepam 0.5 mg tablet 1 tab PO DAILY PRN (Reason: anxiety) 0RF hydroxyzine HCl 50 mg tablet 1 tab PO TID PRN (Reason: anxiety) 0RF ondansetron 4 mg tablet,disintegrating 1 tab PO Q8H PRN (Reason: nausea) 0RF duloxetine 30 mg capsule,delayed release(DR/EC) 30 mg PO BEDTIME 0RF duloxetine 60 mg capsule,delayed release(DR/EC) 1 cap PO DAILY 0RF bupropion HCl 150 mg Tablet Extended Release 24 Hr 150 mg PO QAM 0RF Discharge Orders: Discharge Order (Routine); Ordered 08/13/21 Ordered By: Harsha Logan Diet: regular diet Activity on Discharge: As tolerated Stand Alone Forms: Patient Portal Discharge page, Community Support Care Plan Goals: Maintain mood and safe behaviors Take medications as prescribed Continue to pursue sobriety Practice coping skills Continue with outpatient providers and reach out to them as needed Health Concerns: Mood stability and behaviors Sobriety Plan of Treatment: Follow up with your psychiatric provider and other outpatient providers regarding above concerns Take medications as prescribed Assessment: Risk assessment at time of discharge:? Patient was interviewed prior to discharge and found to be fully oriented and without any SI or HI. Patient has insight and demonstrates good judgment in terms of wanting to pursue treatment. Patient is not in imminent risk of harm to self or others and has a safety plan that includes presenting to the closest ER or calling 911 if feeling unsafe.?
[2021-08-14] MEDS: Nicotine Polacrilex 2 MG GUM BUCCAL ×2 (11:13→13:15)
--- NOTE | 2021-08-14 11:32 | P.PNPSI_ITS ---
Subjective Subjective Date of Service: 08/14/21 Reason For Visit: SI, s/p overdose Interim History: Staff reports that patient had a good night and remained in good behavioral and impulse control Latin Dancer and social insurance administrator met with patient today and he is okay with being discharged. He denies SI. He says he is anxious but explains he knows that is just part of it and will have to make it through. He shared how he did have anxiety last night but found with himself to cope through it. He says I got a plan and patient is hopeful that he will stay stable. He said he reflected on conversation yesterday and that he was grateful for the insight. Patient shares he sees the pattern himself of how he gets dysregulated when he is about to discharge; also reflecting on his life he agrees he has overcome much. Patient's perspective is that yesterday's behaviors were a hiccup and that he does not need to let it derail him; he also talked about his propensity towards catastrophizing and and that he will keep working on it. Patient reiterates he is eager to start work since he feels this will be very stabilizing for him. Latin Dancer discussed clonazepam. He says that it is very helpful but it is up to this engineering writer whether to prescribe it and he understands the risks of this controlled substance. Latin Dancer agreed to give him a 10 day dose with a refill which is enough to get him to his outpatient prescriber with whom he says he has a good report. Patient expressed much gratitude for help received and that he feels he is definitely grown and achieved something during this admission. 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 There is no evidence of perceptual disturbance.? Patients insight and judgment is fair and adequate. Diagnostics Vital Signs (24Hr): Vital Signs - 24 hr 08/13/21 17:05 Temperature 98.9 F Pulse Rate 113 H Blood Pressure 141/61 H BMI result Body Mass Index 24.6 Labs Results: 08/02/21 13:03 08/02/21 13:03 Medications Medications Current Medications Acetaminophen (Acetaminophen 325 Mg Tablet) 650 mg PO Q6H PRN PRN Reason: Headache/Pain Mild Scale (1-3) Last Admin: 08/14/21 08:45 Dose: 650 mg Documented by: Al Hydroxide/Mg Hydroxide (Magnesium Hydrox/Alum Hydrox 30 Ml Oral.Susp) 30 ml PO Q6H PRN PRN Reason: Heartburn/Nausea Last Admin: 08/05/21 19:36 Dose: 30 ml Documented by: Bupropion HCl (Bupropion Hcl Xl 300 Mg Tab.Er.24h) 300 mg PO DAILY [facility] Last Admin: 08/14/21 08:17 Dose: 300 mg Documented by: Clonazepam (Clonazepam 0.5 Mg Tablet) 0.5 mg PO DAILY PRN PRN Reason: anxiety Last Admin: 08/13/21 21:36 Dose: 0.5 mg Documented by: Clonidine HCl (Clonidine Hcl 0.1 Mg Tablet) 0.1 mg PO Q4H PRN; Protocol PRN Reason: Anxiety Last Admin: 08/13/21 10:46 Dose: 0.1 mg Documented by: Docusate Sodium (Docusate Sodium 100 Mg Capsule) 100 mg PO BID PRN PRN Reason: constipation Duloxetine HCl (Duloxetine Hcl 30 Mg Capsule.Dr) 30 mg PO BEDTIME [facility] Last Admin: 08/13/21 21:36 Dose: 30 mg Documented by: Duloxetine HCl (Duloxetine Hcl 60 Mg Capsule.Dr) 60 mg PO DAILY [facility] Last Admin: 08/14/21 08:17 Dose: 60 mg Documented by: Hydroxyzine HCl (Hydroxyzine Hcl 50 Mg Tablet) 50 mg PO TID PRN PRN Reason: anxiety Last Admin: 08/13/21 10:46 Dose: 50 mg Documented by: Magnesium Hydroxide (Milk Of Magnesia 30 Ml Oral.Susp) 30 ml PO DAILY PRN PRN Reason: Constipation Last Admin: 08/04/21 16:42 Dose: 30 ml Documented by: Melatonin (Melatonin 3 Mg Tablet) 3 mg PO BEDTIME [facility] Last Admin: 08/13/21 22:35 Dose: 3 mg Documented by: Nicotine (Nicotine 7 Mg Patch.Td24) 7 mg TRANSDERMA Q24H [facility] Last Admin: 08/14/21 08:17 Dose: 7 mg Documented by: Nicotine Polacrilex (Nicotine Polacrilex 2 Mg Gum) 2 mg BUCCAL Q2H PRN PRN Reason: Nicotine Cravings Last Admin: 08/14/21 11:13 Dose: 2 mg Documented by: Ondansetron HCl (Ondansetron Odt 4 Mg Tab.Rapdis) 4 mg TRANSLINGU Q8H PRN PRN Reason: nausea Oxcarbazepine (Oxcarbazepine 300 Mg Tablet) 600 mg PO BEDTIME [facility] Last Admin: 08/13/21 21:35 Dose: 600 mg Documented by: Quetiapine Fumarate (Quetiapine Fumarate 100 Mg Tablet) 100 mg PO TID@0800,1200,1700 [facility] Last Admin: 08/14/21 11:13 Dose: 100 mg Documented by: Quetiapine Fumarate (Quetiapine Fumarate 300 Mg Tablet) 300 mg PO BEDTIME [facility] Last Admin: 08/13/21 22:35 Dose: 300 mg Documented by: Quetiapine Fumarate (Quetiapine Fumarate 100 Mg Tablet) 100 mg PO DAILY PRN PRN Reason: anxiety Last Admin: 08/12/21 21:53 Dose: 100 mg Documented by: Trazodone HCl (Trazodone Hcl 50 Mg Tablet) 50 mg PO BEDTIME PRN PRN Reason: Insomnia Allergies Allergies Allergy/AdvReac Type Severity Reaction Status Date / Time benztropine [From Cogentin] Allergy Rash Verified 08/02/21 11:57 ibuprofen [From Motrin] Allergy Rash Verified 08/02/21 11:57 Assessment & Plan Assessment & Plan (1) MDD (major depressive disorder), recurrent episode, severe: Status: Chronic Code(s): F33.2 - Major depressive disorder, recurrent severe without psychotic features (2) Suicidal ideation: Status: Chronic Code(s): R45.851 - Suicidal ideations (3) Substance abuse: Status: Chronic Code(s): F19.10 - Other psychoactive substance abuse, uncomplicated (4) Borderline personality disorder: Status: Acute Code(s): F60.3 - Borderline personality disorder Plan Patient is 35-year-old male with history of mood lability, substance abuse, depression, several suicide attempts who presents following overdose on Seroquel in the face of discharging from [facility] and psychosocial stresses from dissolution of marriage, homelessness and losing his car.? This is 3rd psychiatric hospitalization in about 1.5 months. Patient restarted on his medications Forumlation: Patient struggles with a combination of borderline personality disorder, PTSD and depression which is been complicated by relapse with substance abuse PLAN: CV q15 DC on 08/13/21; patient chronically struggles with mood lability, SI and suicidal gestures which will not resolve with further inpatient stay; patient agrees with this assessment and agrees for discharge continue Wellbutrin XL to 300 mg daily Clonazepam (Clonazepam 0.5 Mg Tablet)? 0.5 mg PO DAILY PRN anxiety Clonidine HCl 0.1 mg PO BID PRN;Anxiety Duloxetine HCl 30 mg PO BEDTIME [facility] Duloxetine HCl ? 60 mg PO DAILY [facility] Hydroxyzine HCl (Hydroxyzine Hcl 50 Mg Tablet)? 50 mg PO TID PRN anxiety Melatonin (Melatonin 3 Mg Tablet)? 3 mg PO BEDTIME FELISHA [id number] mg PO BEDTIME F[facility] Quetiapine Fumarate? 100 mg PO TID@0800,1200,1700 [facility] Quetiapine Fumarate 300 mg PO BEDTIME [facility] Trazodone HCl? 50 mg PO BEDTIME PRN Hospital course: 08/05 Remains depressed and anxious with passive SI that he worries will turn into active.? Requests that agrees to increase of Wellbutrin to help treat de pression/anxiety 08/06 patient reports mood is better and SI resolved.? Feels that medication regimen is working and denies any side effects from increased dose of Wellbutrin.? Will avail himself of clonidine as a p.r.n..? 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 08/07 less depression, intermittent SI but less and just fleeting thoughts; anxious about discharge but he's looking forward to going back to work and feels he can be stable 08/08 continue tx plan; stabilizing well 08/09 continue current plan, no changes 08/10 no changes per weekend coverage other than adding seroquel 100 mg QD PRN for anxiety 08/11 no changes per weekend coverage other than adding seroquel 100 mg QD PRN for anxiety 08/12 Remains stable, no SI, depression better; patient is optimistic about remaining stable and sober. He is not in imminent risk of harm to self or others and his plan for discharge tomorrow is appropriate 08/13 On [place] of discharge, patient was emotionally dysregulated which carried on throughout the morning during which time he had several instances where he took a pillowcase or pants and wrapped them around his neck pulling them tightly, requiring staff to remove. Patient placed on a 2-1. Latin Dancer and social insurance administrator met with patient and had a very thorough and helpful discussion about these medina nts. Patient fully agreed that throughout this whole admission his mood has been improved in overall good enough and that he has not had any SI even up until yesterday afternoon. He said however that as nighttime approached he became more and more anxious about his pending discharge. He said this is exactly what happened at [facility] and [facility], where he was fine until the medina of discharge. Patient said that last night he was having trouble sleeping due to anxiety which was triggered by and not having finished his [facility] paperwork and wondering how to navigate transportation from the halfway to work. He said he could not seem to stop this anxiety and that had the thought that tomorrow m orning it is just going to continue since he will be even close to discharge. Patient said in response, he tied some pants around his neck and then walked out into the hallway hoping someone would see [him] at which time staff removed the pants and placed him on a one-to-one. Today, when social insurance administrator was talking with him, he put the pillowcase around his neck and pulled it tighter but then loosened it when social insurance administrator said it is too hard to talk with him this way and was able to have an appropriate conversation including about discharge. A little later patient explained the put a pillow case on his head but despite the fact that he did not tie it tightly, he was upset that his one-to-one did not have an alarmed response. Patient said that this made him worried that if he was actually going to kill himself, no one would be there to keep him safe so he got up, walked out the room and pulled a little tighter around his neck, and then walked by the nursing desk to make sure he was seen, at which time he pulled it tighter still and staff rushed to remove it. Patient demonstrated insight who as he processed these events with this engineering writer and was able to acknowledge that there was a significant part of them that felt the only way he could express how overwhelming his anxiety was, was to demonstrated by putting something around his neck; he agreed that and stead of going out and telling staff that he was being suffocated by his anxiety he tried to show them this. He also agreed that it would be far more preferable to verbally share with staff his feelings rather than pursue such behaviors. Patient shared that he has been struggling with suicidal ideation and attempts since he was 18 years old. He knows that he has achieved and overcome much and over the years learn to control himself much better; however he says when the anxiety comes and will not relent he he struggles with impulsivity and just wanting the feelings to stop. Patient shares that he strongly wants to pursue life and is excited about returning to his job and hopeful about getting back on his feet; conversely he knows that working through this challenging time will intermittently feel daunting. Latin Dancer and patient discussed practicing and strengthening coping skills and learning that despite the onset of anxiety and even the onset of SI, both of which pt acknowledges will inevitably return, it is possible to know that these feelings will pass and learn to tolerate them until they do. Patient himself acknowledged that during this conversation he's witnessed that the anxious feelings did actually pass and he is again more optimistic. Latin Dancer, social insurance administrator and patient discussed where to go from now. Patient expressed that he fully understands that he will again struggle with anxiety, SI and have mood lability and that this decades long struggle is not going to resolve by staying on the unit longer, but will be something he needs to work out over time and through therapy, of which patient is engaged. He feels medications are adequate and does not feel the need for adjustments. Patient expressed that he can be safe and come off one-to-one observation, feeling capable to verbally share with staff if he is feeling distressed rather than act out behaviorally. He says he would like to stay another night but understands that his discharge is inevitable. Overnight, staff reports that patient had a good night and remained in good behavioral and impulse control Latin Dancer and social insurance administrator met with patient today and he is okay with being discharged. He denies SI. He says he is anxious but explains he knows that is just part of it and will have to make it through. He shared how he did have anxiety last night but found with himself to cope through it. He says I got a plan and patient is hopeful that he will stay stable. He said he reflected on conversation yesterday and that he was grateful for the insight. Patient shares he sees the pattern himself of how he gets dysregulated when he is about to discharge; also reflecting on his life he agrees he has overcome much. Patient's perspective is that yesterday's behaviors were a hiccup and that he does not need to let it derail him; he also talked about his propensity towards catastrophizing and and that he will keep working on it. Patient reiterates he is eager to start work since he feels this will be very stabilizing for him. Latin Dancer discussed clonazepam. He says that it is very helpful but it is up to this engineering writer whether to prescribe it and he understands the risks of this controlled substance. Latin Dancer agreed to give him a 10 day dose with a refill which is enough to get him to his outpatient prescriber with whom he says he has a good report. Patient expressed much gratitude for help received and that he feels he is definitely grown and achieved something during this admission. Case discussed with team including nursing account supervisor, charge nurse, social insurance administrator on case and Dr. Contreras. All agree that patient struggles are chronic and that his behaviors are in the context of discharge only, with low to no lethality and high rescue factor and did not necessitate that patient remaining on inpatient unit longer. Latin Dancer maintains that these recent behaviors were not actual suicide attempts but rather a gesture that patient utilizes to communicate to others feelings he finds it difficult to otherwise express. It is a pattern of his of which he is also aware. Team agrees that these chronic struggles will not resolve with at longer inpatient stay but require long-term outpatient therapy. As discussed above, given patient's history and chronic struggles, he remains vulnerable to both relapse and decompensation and it is likely that he will again at some point struggle with overwhelming emotions. However this is patient's baseline. And at baseline[facility]. Sometimes he is able to cope with his emotions and other times he requires additional support, including inpatient admission. Patient has a safety plan and says he will reach out for help immediately if he feels unsafe and will contact Crisis, go to the ED. At this time, it is engineering writer's opinion that patient is appropriate for discharge where he will continue to work on his issues as an outpatient. Patient agrees. Patient shared other instances where he has acted out through behaviors, his distressed feelings, most recently when he went to Crisis and while at Crisis, went into the bathroom and overdosing on Seroquel. Patient also shared that when he was admitted to [facility], they did not give him the medications he wanted so he decided to purposely act out and break things, pulling stuff off the groves to see if he could get the staff to change their minds about medication; when he realized this was not working he stopped these behaviors. Patient shared that his outpatient therapist recently talked to him about patient having diagnosis of borderline personality disorder. Additionally, patient's mother told social insurance administrator that patient has a more recent history of superficial self-harm but only on the day of discharge from psychiatric hospi talizations I spent minutes with the patient and/or on the patient floor today, greater than?50% of which was spent counseling/coordinating care. Patient educated on: diagnosis, medication risk/benefits, substance abuse and therapeutic strategies Informed Consent: understands Reason for contiued inpatient stay Substantial Risk for: stable for discharge
[2021-08-14] MEDS: OXcarbazepine 300 MG TABLET 600 MG PO (11:44)
[2021-08-14] MEDS: clonazePAM 0.5 MG TABLET PO (13:15)
== END 2021-08-14 14:39 | disposition home or self-care (01) | DRG 751 ==
LOC: HO.ED 12:53 → HO.PM5 22:10
PROVIDERS: Physician Assistant; Admitting Provider Psychiatry & Neurology Psychiatry; Emergency Provider Emergency Medicine; Visit Provider Psychiatry & Neurology Psychiatry
DX: F33.2 Major depressive disorder, recurrent severe without psychotic features (principal); R45.851 Suicidal ideations; F60.3 Borderline personality disorder; F41.9 Anxiety disorder, unspecified; Z59.02 Unsheltered homelessness; Z88.6 Allergy status to analgesic agent; Z88.8 Allergy status to other drugs, medicaments and biological substances; Z79.899 Other long term (current) drug therapy
CPT/HCPCS: 80053; 80307; 82077; 82248; 85025; 87502; 87635; 93005; 99285